=== PATIENT | female | born 1980 | race African-American/Black ===

== ENCOUNTER 2016-02-15 11:49 | Emergency (ER) | payer MEDICARE, MEDICAID, OTHER ==
[~2016-02-15] VITALS: Ht 167.6 cm; Wt 81.8 kg
[~2016-02-15 11:49] MED LIST changes: -AMITIZA24 MCG PO; -BENTYL 20MG20 MG/TAB PO; -CEPHALEXIN250 M1 PO; -CORLANOR5 MG PO; -CYMBALTA 20MG20 MG PO; -EC-NAPROSYN375 MG PO; -ELAVIL100 MG PO; -FIORICET 325 MG1 TA1 PO; -INVOKAMET1 PO; -KLONOPIN2 MG PO; -LAMICTAL 100MG100 MG PO; -LINZESS290CAP PO; -LIPITOR 40MG TA40 MG PO; -MAG-G500 MG PO; -MAGCITRATE PO; -MITIGARE0.6 MG PO; -PHENERGAN 25 TA25 MG; -SEROQUEL XR300 MG PO; -TREXIMET 500 MG1 TAB PO; -TRICOR 48MG48 MG PO; -ZITHROMAX 250M250 MG PO; -[UNRECOGNIZED DRUG - OTHER] SQ
[2016-02-15 11:51] VITALS: TEMP 98.2
[2016-02-15] MEDS ORDERED: MAGCITRATE PO (13:44)
[2016-02-15 14:12] VITALS: BP 122/67; PULSE 108
== END 2016-02-15 14:12 | disposition home or self-care (01) ==
LOC: COL.ER 11:49
DX: R10.32 Left lower quadrant pain (principal); K59.00 Constipation, unspecified
CPT/HCPCS: Q9967

== ENCOUNTER → 2016-02-15 | Outpatient (CLI) | payer MEDICARE, MEDICAID ==
[~2016-02-15] MED LIST: ALBUTEROL IH; AMANTADINE HCL100 M1 PO; AMBIEN 10MG10 MG PO; AMBIEN CR 12.12.5 MG PO; AMBIEN CR12.5 MG PO; AMITIZA24 MCG PO; AMITRIPTYLINE H25 M1 PO; AXERT PO; B2-5050 MG PO; BACLOFEN PO; BENTYL 20MG20 MG/TAB PO; BUSPAR10 MG PO; BUSPAR5 MG PO; BYETTA 5MC300 MCG/SY SC; CARDIZEM CD 18180 MG PO; CATAPRES 0.1MG0.1 MG PO; CEPHALEXIN250 M1 PO; CORLANOR5 MG PO; CRANBERRY PILLS PO; CYMBALTA 20MG20 MG PO; DULCOLAX TAB5 MG PO; EC-NAPROSYN375 MG PO; ELAVIL100 MG PO; ELAVIL50 MG PO; FIORICET 325 MG1 TA1 PO; GLIPIZIDE5 MG PO; IMITREX ST6 MG/0.5 M SC; INDERAL 20MG20 MG PO; INVOKAMET1 PO; KLONOPIN 0.5MG0.5 MG PO; KLONOPIN2 MG PO; LAMICTAL 100MG100 MG PO; LATUDA20 MG PO; LEVAQUIN 5500 MG/TAB PO; LEVBID0.375 MG PO; LEVOTHYROXINE PO; LEVSIN0.125 M1 PO; LINZESS290CAP PO; LIPITOR 40MG TA40 MG PO; LORTAB PO; LUNESTA1 MG PO; LUNESTA3 MG PO; MAG-G500 MG PO; MAGCITRATE PO; METFORMIN HCL500 M1 PO; METROGEL-VAGINA0.75% VG; MITIGARE0.6 MG PO; MORPHINE 1515 MG/TAB PO; NORCO 325 MG-51 TAB PO; OMNICEF 300MG300 MG PO; OXYCONTIN 20MG20 MG PO; PERCOCET 325 MG1 TA2 PO; PERCOCET 5/321 UDTAB PO; PHENERGAN 25 TA25 MG; PHENERGAN 25 TA25 MG PO; PRILOSEC10 MG PO; PRINIVIL2.5 MG PO; PROVENTIL0.09 MG/A1 IH; PYRIDIUM200 M1 PO; REGLAN 10MG10 MG/TAB PO; REQUIP 1MG T1 MG/TAB PO; RESTORIL 1515 MG/CAP PO; ROBAXIN 50500 MG/TAB PO; SEROQUEL 2525 MG/TAB PO; SEROQUEL PO; SEROQUEL XR300 MG PO; SINGULAIR10 MG PO; SYMAX DUOTAB0.375 MG PO; SYNTHROID0.05 MG/TA PO; SYNTHROID0.1 MG/TAB PO; SYNTHROID0.2 MG/TAB PO; TOPAMAX50 MG PO; TOPROL XL 50MG50 MG PO; TOPROL XL100 MG PO; TOPROL XL50 MG PO; TRAMADOL50 MG PO; TREXIMET 500 MG1 TAB PO; TRICOR 48MG48 MG PO; TRICOR145 MG PO; ULTRAM 50MG TAB50 MG PO; VALIUM 10MG10 MG/TAB PO; VALIUM 5MG T5 MG/TAB PO; WELLBUTRIN SR150 M1 PO; XANAX 0.5MG0.5 MG PO; ZANAFLEX CAPSULE2 MG PO; ZECUITY; ZITHROMAX 250M250 MG PO; ZOFRAN 4MG T4 MG/TAB PO; ZOFRAN ODT4 MG PO; ZOLOFT 100MG100 MG PO; ZOLOFT100 MG PO; ZOLOFT50 MG PO; [UNRECOGNIZED DRUG - OTHER] SQ; see list
== END ==
LOC: COL.RAD 02-13 10:00
PROVIDERS: Physician Assistant
DX: R10.84 Generalized abdominal pain (principal); R16.0 Hepatomegaly, not elsewhere classified; R14.0 Abdominal distension (gaseous); R11.0 Nausea; E11.9 Type 2 diabetes mellitus without complications
CPT/HCPCS: Q9967

== ENCOUNTER 2016-02-22 15:18 | Emergency (ER) | payer MEDICARE, MEDICAID, OTHER ==
[~2016-02-22] VITALS: Ht 167.6 cm; Wt 85.9 kg
[~2016-02-22 15:18] MED LIST changes: +MAGCITRATE PO
[2016-02-22 15:21] VITALS: TEMP 99.6
[2016-02-22 17:35] LABS: BASO % 0.4 % (0.0-2.0); EOS # 0.3 (0.0-0.7); EOS % 3.3 % (0-4.0); GRAN # 6.6 (1.4-6.5); GRAN % 63.1 % (42.2-75.2); HEMATOCRIT 43.8 % (37.0-47.0); HEMOGLOBIN 14.7 g/dl (12.5-16.0); LYMPH # 2.8 (1.2-3.4); LYMPH % 27.1 % (20.0-51.0); MEAN CELL VOLUME 97 fl (80.0-100.0); MEAN CORPUSCULAR HEMOGLOBIN 33 pg (27.0-31.0); MEAN CORPUSCULAR HGB CONC 34 g/dl (33.0-37.0); MEAN PLATELET VOLUME 8.9 fl (7.4-10.4); MONO # 0.6 (0.1-0.6); MONO % 5.9 % (1.7-9.3); PLATELET COUNT 226 K/mm3 (130-400); REDCELL DISTRIBUTION WIDTH-CV 13.4 % (11.5-14.5); WHITE BLOOD COUNT 10.4 K/mm3 (4.8-10.8)
[2016-02-22 17:45] LABS: ALANINE AMINOTRANSFERASE 38 U/L (9-52); ALBUMIN 3.8 gm/dL (3.5-5.0); ALKALINE PHOSPHATASE 71 U/L (50-136); ANION GAP 12 mmol/L (7-16); BILIRUBIN,TOTAL 0.6 mg/dL (0.0-1.0); BLOOD UREA NITROGEN 9 mg/dL (7-17); CALCIUM 8.8 mg/dL (8.4-10.2); CARBON DIOXIDE 23 mmol/L (22-30); CHLORIDE 104 mmol/L (98-107); CREATININE, serum 0.86 mg/dL (0.52-1.25); GLUCOSE 146 mg/dL (74-106); PHOSPHOROUS 2.9 mg/dL (2.5-4.5); POTASSIUM 3.9 mmol/L (3.4-5.0); SODIUM 140 mmol/L (137-145); TOTAL PROTEIN 7.2 gm/dL (6.4-8.2)
[2016-02-22 17:57] LABS: TROPONIN-I < 0.012 ng/mL (0.000-0.034)
[2016-02-22 18:27] VITALS: BP 118/70; PULSE 88
== END 2016-02-22 18:30 | disposition home or self-care (01) ==
LOC: COL.ER 15:18
PROVIDERS: Physician Assistant
DX: R55 Syncope and collapse (principal); R53.1 Weakness; K52.1 Toxic gastroenteritis and colitis; T47.4X5A Adverse effect of other laxatives, initial encounter; E03.9 Hypothyroidism, unspecified; I95.1 Orthostatic hypotension
CPT/HCPCS: J7030

== ENCOUNTER 2016-02-26 10:19 | Observation (INO) | payer MEDICARE, OTHER, MEDICAID ==
[~2016-02-26] VITALS: Ht 167.6 cm; Wt 93.8 kg
[2016-02-26] MEDS ORDERED: BENTYL 20MG20 MG/TAB PO (13:19)
[2016-02-26] MEDS ORDERED: CYMBALTA 20MG20 MG PO (13:19)
[2016-02-26] MEDS ORDERED: CEPHALEXIN250 M1 PO (13:21)
[2016-02-26] MEDS ORDERED: LINZESS290CAP PO (13:21)
[2016-02-26] MEDS ORDERED: TOPAMAX50 MG PO (13:22)
[2016-02-26] MEDS ORDERED: TREXIMET 500 MG1 TAB PO (13:22)
[2016-02-26] MEDS ORDERED: ELAVIL100 MG PO (13:23)
[2016-02-26] MEDS ORDERED: MAG-G500 MG PO (13:24)
[2016-02-26] MEDS ORDERED: INVOKAMET1 PO (13:25)
[2016-02-26] MEDS ORDERED: NORCO 325 MG-51 TAB PO (13:25)
[2016-02-26 14:09] VITALS: BP 137/86; PULSE 94; TEMP 98
[2016-02-26 16:15] VITALS: BP 134/91; PULSE 87; TEMP 98.4
[2016-02-26 19:44] VITALS: BP 122/87; PULSE 88; TEMP 98.3
[2016-02-26 23:56] VITALS: BP 130/77; PULSE 80
[2016-02-27 03:34] VITALS: BP 102/67; PULSE 95; TEMP 98.3
[2016-02-27 07:52] VITALS: BP 105/64; PULSE 100; TEMP 98.3
[2016-02-27 12:31] VITALS: BP 137/95; PULSE 102
[2016-02-27 15:38] VITALS: BP 119/80; PULSE 109
[2016-02-27 19:49] VITALS: BP 118/83; PULSE 117; TEMP 97.8
[2016-02-27 23:42] VITALS: BP 122/86; PULSE 104; TEMP 98.3
[2016-02-28 03:34] VITALS: BP 107/79; PULSE 107; TEMP 98.1
[2016-02-28 07:40] VITALS: BP 103/67; PULSE 108; TEMP 98.4
[2016-02-28 12:42] VITALS: BP 104/60; PULSE 109; TEMP 97.5
[2016-02-28 15:55] VITALS: BP 99/76; PULSE 100; TEMP 98.6
[2016-02-28] MEDS ORDERED: LAMICTAL 100MG100 MG PO (17:06)
== END 2016-02-28 17:51 | disposition home or self-care (01) ==
LOC: MEDICAL 10:19
DX: R55 Syncope and collapse (principal); E03.9 Hypothyroidism, unspecified; I10 Essential (primary) hypertension; E11.9 Type 2 diabetes mellitus without complications; G47.33 Obstructive sleep apnea (adult) (pediatric); F31.9 Bipolar disorder, unspecified; F41.0 Panic disorder [episodic paroxysmal anxiety]; F41.9 Anxiety disorder, unspecified; F90.9 Attention-deficit hyperactivity disorder, unspecified type; F42.9 Obsessive-compulsive disorder, unspecified
CPT/HCPCS: 90791-AI; A9585; G0378; J3030

== ENCOUNTER 2016-03-26 04:01 | Emergency (ER) | payer MEDICARE, MEDICAID, OTHER ==
[~2016-03-26] VITALS: Ht 167.6 cm; Wt 88.2 kg
[~2016-03-26 04:01] MED LIST changes: +BENTYL 20MG20 MG/TAB PO; +CEPHALEXIN250 M1 PO; +CYMBALTA 20MG20 MG PO; +ELAVIL100 MG PO; +INVOKAMET1 PO; +LAMICTAL 100MG100 MG PO; +LINZESS290CAP PO; +MAG-G500 MG PO; +TREXIMET 500 MG1 TAB PO
[2016-03-26] MEDS ORDERED: EC-NAPROSYN375 MG PO (05:33)
[2016-03-26] MEDS ORDERED: ZITHROMAX 250M250 MG PO (05:33)
[2016-03-26 05:44] VITALS: BP 147/98; PULSE 91
== END 2016-03-26 05:45 | disposition home or self-care (01) ==
LOC: COL.ER 04:01
DX: M94.0 Chondrocostal junction syndrome [Tietze] (principal)
CPT/HCPCS: J1170; J1885

== ENCOUNTER 2016-03-29 20:41 | Emergency (ER) | payer MEDICARE, MEDICAID, OTHER ==
[~2016-03-29] VITALS: Ht 170.2 cm; Wt 88.2 kg
[~2016-03-29 20:41] MED LIST changes: +EC-NAPROSYN375 MG PO; +ZITHROMAX 250M250 MG PO
[2016-03-29 20:43] VITALS: TEMP 99.1
[2016-03-29] MEDS ORDERED: ULTRAM 50MG TAB50 MG PO (21:25)
[2016-03-29] MEDS ORDERED: PERCOCET 325 MG1 TA2 PO (21:25)
[2016-03-29 21:58] VITALS: BP 147/97; PULSE 88
== END 2016-03-29 22:00 | disposition home or self-care (01) ==
LOC: COL.ER 20:41
DX: J40 Bronchitis, not specified as acute or chronic (principal); J06.9 Acute upper respiratory infection, unspecified
CPT/HCPCS: J1170; J1885

== ENCOUNTER 2016-04-02 07:22 | Emergency (ER) | payer MEDICARE, MEDICAID, OTHER ==
[~2016-04-02] VITALS: Ht 167.6 cm; Wt 85.9 kg
[2016-04-02 07:26] VITALS: TEMP 98.2
[2016-04-02 08:16] LABS: BASO % 0.5 % (0.0-2.0); EOS # 0.1 (0.0-0.7); EOS % 0.7 % (0-4.0); GRAN # 5.8 (1.4-6.5); GRAN % 71.8 % (42.2-75.2); HEMATOCRIT 47.1 % (37.0-47.0); HEMOGLOBIN 16.2 g/dl (12.5-16.0); LYMPH # 1.7 (1.2-3.4); LYMPH % 20.5 % (20.0-51.0); MEAN CELL VOLUME 94 fl (80.0-100.0); MEAN CORPUSCULAR HEMOGLOBIN 32 pg (27.0-31.0); MEAN CORPUSCULAR HGB CONC 34 g/dl (33.0-37.0); MEAN PLATELET VOLUME 9.3 fl (7.4-10.4); MONO # 0.5 (0.1-0.6); MONO % 6.1 % (1.7-9.3); PLATELET COUNT 243 K/mm3 (130-400); RED BLOOD COUNT 5.02 M/mm3 (4.10-5.30); REDCELL DISTRIBUTION WIDTH-CV 12.6 % (11.5-14.5); WHITE BLOOD COUNT 8.1 K/mm3 (4.8-10.8)
[2016-04-02 08:56] LABS: ALANINE AMINOTRANSFERASE 31 U/L (9-52); ALBUMIN 4.2 gm/dL (3.5-5.0); ALKALINE PHOSPHATASE 71 U/L (50-136); ANION GAP 15 mmol/L (7-16); BILIRUBIN,TOTAL 1.1 mg/dL (0.0-1.0); BLOOD UREA NITROGEN 10 mg/dL (7-17); CALCIUM 9.2 mg/dL (8.4-10.2); CARBON DIOXIDE 21 mmol/L (22-30); CHLORIDE 103 mmol/L (98-107); CREATININE, serum 0.72 mg/dL (0.52-1.25); GLUCOSE 258 mg/dL (74-106); POTASSIUM 3.9 mmol/L (3.4-5.0); SODIUM 139 mmol/L (137-145); TOTAL PROTEIN 7.8 gm/dL (6.4-8.2)
[2016-04-02 09:02] LABS: C-REACTIVE PROTEIN < 0.5 mg/dL (0.0-0.9)
[2016-04-02 09:04] LABS: PH 8 (5-8); SQUAMOUS EPITHELIAL 0-2 /hpf; URINE APPEARANCE Hazy; URINE BACTERIA Rare /hpf; URINE BILIRUBIN Negative (NEGATIVE); URINE BLOOD 2+ (NEGATIVE); URINE COLOR Yellow; URINE GLUCOSE 3+ (NEGATIVE); URINE KETONE Negative (NEGATIVE); URINE RBC 0-2 /hpf; URINE UROBILINOGEN Negative (NEGATIVE)
[2016-04-02] MEDS ORDERED: PHENERGAN 25 TA25 MG PO (09:49)
[2016-04-02 10:03] VITALS: BP 112/87; PULSE 88
== END 2016-04-02 10:03 | disposition home or self-care (01) ==
LOC: COL.ER 07:22
PROVIDERS: Emergency Medicine
DX: R10.32 Left lower quadrant pain (principal)
CPT/HCPCS: J1200; J1630; J3010; J7030

== ENCOUNTER 2016-07-06 16:36 | Inpatient (IN) | payer MEDICARE, MEDICAID ==
[~2016-07-06] VITALS: Ht 170.2 cm; Wt 86.2 kg
[2016-07-06 17:17] LABS: BASO # 0.1 (0.0-0.2); BASO % 0.9 % (0.0-2.0); EOS # 0.1 (0.0-0.7); EOS % 1.8 % (0-4.0); GRAN # 3.9 (1.4-6.5); GRAN % 59.7 % (42.2-75.2); HEMATOCRIT 43.5 % (37.0-47.0); HEMOGLOBIN 14.9 g/dl (12.5-16.0); LYMPH % 31.3 % (20.0-51.0); MEAN CELL VOLUME 98 fl (80.0-100.0); MEAN CORPUSCULAR HEMOGLOBIN 34 pg (27.0-31.0); MEAN CORPUSCULAR HGB CONC 34 g/dl (33.0-37.0); MEAN PLATELET VOLUME 10.2 fl (7.4-10.4); MONO # 0.4 (0.1-0.6); MONO % 5.5 % (1.7-9.3); PLATELET COUNT 289 K/mm3 (130-400); RED BLOOD COUNT 4.45 M/mm3 (4.10-5.30); REDCELL DISTRIBUTION WIDTH-CV 13.5 % (11.5-14.5); WHITE BLOOD COUNT 6.5 K/mm3 (4.8-10.8)
[2016-07-06 17:30] LABS: ADJUSTED CALCIUM 8.7 mg/dL (8.4-10.2); ALANINE AMINOTRANSFERASE 25 U/L (9-52); ALBUMIN 4.1 gm/dL (3.5-5.0); ALKALINE PHOSPHATASE 84 U/L (50-136); ANION GAP 17 mmol/L (7-16); BILIRUBIN,TOTAL 1.1 mg/dL (0.0-1.0); BLOOD UREA NITROGEN 7 mg/dL (7-17); CALCIUM 8.8 mg/dL (8.4-10.2); CARBON DIOXIDE 19 mmol/L (22-30); CHLORIDE 96 mmol/L (98-107); CREATININE, serum 0.65 mg/dL (0.52-1.25); POTASSIUM 3.9 mmol/L (3.4-5.0); SODIUM 133 mmol/L (137-145); TOTAL PROTEIN 7.2 gm/dL (6.4-8.2)
[2016-07-06 17:34] LABS: GLUCOSE 575 mg/dL (74-106)
[2016-07-06 17:40] LABS: PARTIAL THROMBOPLASTIN TIME 28.4 SECONDS (26.0-37.0); PROTHROMBIN TIME 10.9 SECONDS (9.7-12.8)
[2016-07-06 17:42] LABS: TROPONIN-I < 0.012 ng/mL (0.000-0.034)
[2016-07-06 18:52] LABS: PH 6 (5-8); SQUAMOUS EPITHELIAL 0-2 /hpf; URINE APPEARANCE Clear; URINE BACTERIA None Seen /hpf; URINE BILIRUBIN Negative (NEGATIVE); URINE BLOOD Negative (NEGATIVE); URINE COLOR Straw; URINE GLUCOSE 3+ (NEGATIVE); URINE KETONE Negative (NEGATIVE); URINE RBC 0-2 /hpf; URINE UROBILINOGEN Negative (NEGATIVE); URINE WBC 0-2 /hpf
[2016-07-06] MEDS ORDERED: FIORICET 325 MG1 TA1 PO (19:37)
[2016-07-06] MEDS ORDERED: KLONOPIN2 MG PO (19:37)
[2016-07-06] MEDS ORDERED: AMITIZA24 MCG PO (19:38)
[2016-07-06] MEDS ORDERED: SEROQUEL XR300 MG PO (19:38)
[2016-07-06 19:51] LABS: TROPONIN-I < 0.012 ng/mL (0.000-0.034)
[2016-07-06 22:37] VITALS: BP 113/76; PULSE 87; TEMP 98.3
[2016-07-06 23:02] LABS: MAGNESIUM 1.8 mg/dL (1.6-2.3)
[2016-07-06 23:12] LABS: B-TYPE NATRIURETIC PEPTIDE < 11 pg/mL (0-125)
[2016-07-07] VITALS (8 sets, daily range): BP systolic 97–116; BP diastolic 46–78; PULSE 79–107; TEMP 97.4–98.5
[2016-07-07 07:22] LABS: CHOLESTEROL 256 mg/dL (120-200)
[2016-07-07 08:14] LABS: TRIGLYCERIDE 958 mg/dL
[2016-07-08 03:54] VITALS: BP 111/77; PULSE 74; TEMP 97.7
[2016-07-08 07:36] VITALS: BP 119/77; PULSE 86; TEMP 98.3
[2016-07-08] MEDS ORDERED: CORLANOR5 MG PO (10:26)
[2016-07-08 12:23] VITALS: BP 107/71; PULSE 83; TEMP 98.8
[2016-07-08] MEDS ORDERED: LIPITOR 40MG TA40 MG PO (14:20)
[2016-07-08] MEDS ORDERED: TRICOR 48MG48 MG PO (15:02)
[2016-07-08 15:15] VITALS: BP 114/77; PULSE 70; TEMP 98.2
== END 2016-07-08 16:47 | disposition home or self-care (01) | DRG 310 ==
LOC: COL.ER 16:36 → MEDICAL 22:00
PROVIDERS: Emergency Medicine; Nurse Practitioner Family
DX: I47.1 Supraventricular tachycardia (principal); K58.9 Irritable bowel syndrome, unspecified; E11.65 Type 2 diabetes mellitus with hyperglycemia; N93.9 Abnormal uterine and vaginal bleeding, unspecified; F41.9 Anxiety disorder, unspecified
CPT/HCPCS: 99223-AI; 99233-AI; 99239; J1170; J1815; J2060; J2270; J2405; J2765; J3010; J7030; Q9967

== ENCOUNTER 2016-07-11 16:56 | Emergency (ER) | payer MEDICARE, MEDICAID ==
[~2016-07-11] VITALS: Ht 170.2 cm; Wt 76.8 kg
[~2016-07-11 16:56] MED LIST changes: +AMITIZA24 MCG PO; +CORLANOR5 MG PO; +FIORICET 325 MG1 TA1 PO; +KLONOPIN2 MG PO; +LIPITOR 40MG TA40 MG PO; +SEROQUEL XR300 MG PO; +TRICOR 48MG48 MG PO
[2016-07-11 16:58] VITALS: TEMP 98.2
[2016-07-11 17:45] LABS: BASO % 0.5 % (0.0-2.0); EOS # 0.1 (0.0-0.7); EOS % 1.7 % (0-4.0); GRAN # 4.9 (1.4-6.5); GRAN % 65.6 % (42.2-75.2); HEMATOCRIT 42.8 % (37.0-47.0); HEMOGLOBIN 14.4 g/dl (12.5-16.0); LYMPH % 26.4 % (20.0-51.0); MEAN CELL VOLUME 100 fl (80.0-100.0); MEAN CORPUSCULAR HEMOGLOBIN 34 pg (27.0-31.0); MEAN CORPUSCULAR HGB CONC 34 g/dl (33.0-37.0); MEAN PLATELET VOLUME 9.6 fl (7.4-10.4); MONO # 0.4 (0.1-0.6); MONO % 5.5 % (1.7-9.3); PLATELET COUNT 257 K/mm3 (130-400); RED BLOOD COUNT 4.27 M/mm3 (4.10-5.30); REDCELL DISTRIBUTION WIDTH-CV 13.4 % (11.5-14.5); WHITE BLOOD COUNT 7.5 K/mm3 (4.8-10.8)
[2016-07-11 17:55] LABS: ADJUSTED CALCIUM 8.8 mg/dL (8.4-10.2); ALANINE AMINOTRANSFERASE 24 U/L (9-52); ALBUMIN 3.8 gm/dL (3.5-5.0); ALKALINE PHOSPHATASE 68 U/L (50-136); ANION GAP 12 mmol/L (7-16); BILIRUBIN,TOTAL 0.9 mg/dL (0.0-1.0); BLOOD UREA NITROGEN 13 mg/dL (7-17); CALCIUM 8.6 mg/dL (8.4-10.2); CARBON DIOXIDE 24 mmol/L (22-30); CHLORIDE 101 mmol/L (98-107); CREATININE, serum 0.71 mg/dL (0.52-1.25); GLUCOSE 287 mg/dL (74-106); POTASSIUM 3.7 mmol/L (3.4-5.0); SODIUM 137 mmol/L (137-145); TOTAL PROTEIN 6.8 gm/dL (6.4-8.2)
[2016-07-11 18:15] LABS: TROPONIN-I < 0.012 ng/mL (0.000-0.034)
[2016-07-11] MEDS ORDERED: MITIGARE0.6 MG PO (18:34)
[2016-07-11 19:20] VITALS: BP 105/69; PULSE 77
== END 2016-07-11 19:24 | disposition home or self-care (01) ==
LOC: COL.ER 16:56
PROVIDERS: Emergency Medicine
DX: I30.9 Acute pericarditis, unspecified (principal); E10.8 Type 1 diabetes mellitus with unspecified complications; F41.9 Anxiety disorder, unspecified; Z79.4 Long term (current) use of insulin
CPT/HCPCS: J1170; J1885; J2405

== ENCOUNTER 2016-07-18 09:22 | Day surgery (SDC) | payer MEDICARE, MEDICAID ==
[~2016-07-18] VITALS: Ht 170.2 cm; Wt 78.1 kg
[~2016-07-18 09:22] MED LIST changes: +MITIGARE0.6 MG PO
[2016-07-18 10:10] VITALS: BP 125/88; PULSE 81; TEMP 97.5
[2016-07-18] MEDS ORDERED: [UNRECOGNIZED DRUG - OTHER] SQ (10:28)
[2016-07-18] MEDS ORDERED: PHENERGAN 25 TA25 MG (10:42)
[2016-07-18] MEDS ORDERED: ULTRAM 50MG TAB50 MG PO (10:44)
[2016-07-18 11:15] VITALS: BP 125/88; PULSE 83; TEMP 98.8
[2016-07-18 11:45] VITALS: BP 118/83; PULSE 89
== END 2016-07-18 11:45 | disposition home or self-care (01) ==
LOC: SDCO 09:22
DX: K21.9 Gastro-esophageal reflux disease without esophagitis (principal); K22.70 Barrett's esophagus without dysplasia; K44.9 Diaphragmatic hernia without obstruction or gangrene; E66.9 Obesity, unspecified; E11.9 Type 2 diabetes mellitus without complications
CPT/HCPCS: J2250; J3010

== ENCOUNTER 2016-10-04 17:28 | Emergency (ER) | payer MEDICARE, MEDICAID ==
[~2016-10-04] VITALS: Ht 165.1 cm; Wt 80.0 kg
[~2016-10-04 17:28] MED LIST changes: +PHENERGAN 25 TA25 MG; +[UNRECOGNIZED DRUG - OTHER] SQ
[2016-10-04 17:35] VITALS: TEMP 98.3
[2016-10-04 18:29] LABS: BASO % 0.4 % (0.0-2.0); EOS # 0.3 (0.0-0.7); GRAN # 6.7 (1.4-6.5); HEMOGLOBIN 13.5 g/dl (12.5-16.0); LYMPH # 2.4 (1.2-3.4); LYMPH % 23.9 % (20.0-51.0); MEAN CELL VOLUME 98 fl (80.0-100.0); MEAN CORPUSCULAR HEMOGLOBIN 32 pg (27.0-31.0); MEAN CORPUSCULAR HGB CONC 33 g/dl (33.0-37.0); MONO # 0.5 (0.1-0.6); MONO % 5.3 % (1.7-9.3); PLATELET COUNT 240 K/mm3 (130-400); RED BLOOD COUNT 4.19 M/mm3 (4.10-5.30)
[2016-10-04 18:30] LABS: INR 1.2 (0.8-3.0)
[2016-10-04 18:33] LABS: PARTIAL THROMBOPLASTIN TIME 34.2 SECONDS (26.0-37.0)
[2016-10-04 18:41] LABS: ADJUSTED CALCIUM 8.7 mg/dL (8.4-10.2); ALANINE AMINOTRANSFERASE 21 U/L (9-52); ALKALINE PHOSPHATASE 42 U/L (50-136); ANION GAP 11 mmol/L (7-16); BILIRUBIN,TOTAL 0.5 mg/dL (0.0-1.0); BLOOD UREA NITROGEN 12 mg/dL (7-17); CALCIUM 8.7 mg/dL (8.4-10.2); CARBON DIOXIDE 20 mmol/L (22-30); CHLORIDE 110 mmol/L (98-107); CREATININE, serum 0.92 mg/dL (0.52-1.25); GLUCOSE 174 mg/dL (74-106); LIPASE 26 U/L (23-300); POTASSIUM 3.6 mmol/L (3.4-5.0); SODIUM 140 mmol/L (137-145); TOTAL PROTEIN 7.1 gm/dL (6.4-8.2)
[2016-10-04 18:53] LABS: B-TYPE NATRIURETIC PEPTIDE 12 pg/mL (0-125)
[2016-10-04 19:06] LABS: TROPONIN-I < 0.012 ng/mL (0.000-0.034)
[2016-10-04] MEDS ORDERED: ZITHROMAX 250M250 MG PO (20:54)
[2016-10-04] MEDS ORDERED: NORCO 325 MG-51 TAB PO (21:39)
[2016-10-04 21:54] VITALS: BP 100/66; PULSE 91
== END 2016-10-04 21:54 | disposition home or self-care (01) ==
LOC: COL.ER 17:28
PROVIDERS: Emergency Medicine
DX: R09.1 Pleurisy (principal); I26.99 Other pulmonary embolism without acute cor pulmonale; E11.9 Type 2 diabetes mellitus without complications; I10 Essential (primary) hypertension; E78.5 Hyperlipidemia, unspecified; K58.9 Irritable bowel syndrome, unspecified
CPT/HCPCS: J1170; J7030; Q9967

== ENCOUNTER → 2016-10-09 | Outpatient (CLI) | payer MEDICARE, MEDICAID ==
[2016-10-10 00:04] LABS: HOMOCYSTEINE 10.5 umol/L (4.0-14.0)
[2016-10-10 11:16] LABS: PT G20210A MUTATION B Negative (Negative)
[2016-10-14 12:23] LABS: LUPUS ANTICOAGULANT PT 11.5 sec (()); LUPUS ANTICOAGULANT PTT 31 sec (26 - 36)
[2016-10-14 13:09] LABS: LUPUS ANTICOAGULANT DRVVT 0.9 ratio (())
== END ==
LOC: COL.RAD 10-08 12:00 → COL.LAB 11:35 → COL.RAD 12:00
PROVIDERS: Internal Medicine Pulmonary Disease
DX: R06.02 Shortness of breath (principal); I26.99 Other pulmonary embolism without acute cor pulmonale

== ENCOUNTER → 2016-10-21 | Outpatient (CLI) | payer MEDICARE, MEDICAID | LOC: COL.VAS 10-14 10:30 | DX: I26.99 Other pulmonary embolism without acute cor pulmonale (principal) | CPT/HCPCS: A9539; A9540 ==

== ENCOUNTER 2016-10-26 11:15 | Emergency (ER) | payer MEDICARE, MEDICAID ==
[~2016-10-26] VITALS: Ht 167.6 cm; Wt 81.4 kg
[2016-10-26 11:17] VITALS: TEMP 98
[2016-10-26 12:23] LABS: BASO # 0.1 (0.0-0.2); BASO % 0.7 % (0.0-2.0); EOS # 0.1 (0.0-0.7); EOS % 1.4 % (0-4.0); GRAN # 4.8 (1.4-6.5); GRAN % 64.8 % (42.2-75.2); HEMATOCRIT 42.4 % (37.0-47.0); HEMOGLOBIN 14.1 g/dl (12.5-16.0); LYMPH % 27.2 % (20.0-51.0); MEAN CELL VOLUME 96 fl (80.0-100.0); MEAN CORPUSCULAR HEMOGLOBIN 32 pg (27.0-31.0); MEAN CORPUSCULAR HGB CONC 33 g/dl (33.0-37.0); MONO # 0.4 (0.1-0.6); MONO % 5.6 % (1.7-9.3); PLATELET COUNT 278 K/mm3 (130-400); REDCELL DISTRIBUTION WIDTH-CV 12.4 % (11.5-14.5); WHITE BLOOD COUNT 7.3 K/mm3 (4.8-10.8)
[2016-10-26 12:27] LABS: INR 1.2 (0.8-3.0); PROTHROMBIN TIME 13.8 SECONDS (9.7-12.8)
[2016-10-26 12:38] LABS: ADJUSTED CALCIUM 8.9 mg/dL (8.4-10.2); ALANINE AMINOTRANSFERASE 14 U/L (9-52); ALBUMIN 4.1 gm/dL (3.5-5.0); ALKALINE PHOSPHATASE 56 U/L (50-136); ANION GAP 11 mmol/L (7-16); BILIRUBIN,TOTAL 0.6 mg/dL (0.0-1.0); BLOOD UREA NITROGEN 13 mg/dL (7-17); CARBON DIOXIDE 20 mmol/L (22-30); CHLORIDE 109 mmol/L (98-107); CREATININE, serum 0.93 mg/dL (0.52-1.25); GLUCOSE 142 mg/dL (74-106); LIPASE 38 U/L (23-300); POTASSIUM 3.8 mmol/L (3.4-5.0); SODIUM 140 mmol/L (137-145); TOTAL PROTEIN 7.3 gm/dL (6.4-8.2)
[2016-10-26 12:50] LABS: B-TYPE NATRIURETIC PEPTIDE < 11 pg/mL (0-125); TROPONIN-I < 0.012 ng/mL (0.000-0.034)
[2016-10-26 13:26] VITALS: BP 128/90; PULSE 82
== END 2016-10-26 13:27 | disposition home or self-care (01) ==
LOC: COL.ER 11:15
PROVIDERS: Emergency Medicine
DX: J90 Pleural effusion, not elsewhere classified (principal); R06.02 Shortness of breath; E11.9 Type 2 diabetes mellitus without complications; I10 Essential (primary) hypertension; E78.5 Hyperlipidemia, unspecified; G43.909 Migraine, unspecified, not intractable, without status migrainosus; I27.2 Other secondary pulmonary hypertension; G47.33 Obstructive sleep apnea (adult) (pediatric); Z32.02 Encounter for pregnancy test, result negative
CPT/HCPCS: J2550; J7040; Q9967

== ENCOUNTER → 2016-10-27 | Outpatient (CLI) | payer MEDICARE, MEDICAID | LOC: COL.RAD 09:31 | DX: Z86.711 Personal history of pulmonary embolism (principal) ==

== ENCOUNTER → 2016-11-04 | Outpatient (CLI) | payer MEDICARE, MEDICAID ==
[~2016-11-04] MED LIST changes: +EFFEXOR 75M75 MG/TAB PO; +FLEXERIL 1010 MG/TAB PO; +FLOMAX 0.40.4 MG/CAP PO; +LAMICTAL200 MG PO; +LOVENOX 8080 MG/0.8 SQ; +LYRICA200 MG PO; +NOVOLOG 100U100 U/M1 SQ; +PREDNISONE 5MG5 MG PO; +REXULTI2 MG PO; +SEROQUEL 1100 MG/TAB PO; +SEROQUEL400 MG PO; +SYNTHROID 0.10.15 MG PO; +TRESIBA FL100 UNIT/1 SQ
== END ==
LOC: COL.VAS 08:00
DX: R06.02 Shortness of breath (principal)

== ENCOUNTER 2016-11-10 07:57 | Outpatient (CLI) | payer MEDICARE, MEDICAID ==
[~2016-11-10] VITALS: Ht 167.6 cm; Wt 85.2 kg
[~2016-11-10 07:57] MED LIST changes: -EFFEXOR 75M75 MG/TAB PO; -FLEXERIL 1010 MG/TAB PO; -FLOMAX 0.40.4 MG/CAP PO; -LAMICTAL200 MG PO; -LOVENOX 8080 MG/0.8 SQ; -LYRICA200 MG PO; -NOVOLOG 100U100 U/M1 SQ; -PREDNISONE 5MG5 MG PO; -REXULTI2 MG PO; -SEROQUEL 1100 MG/TAB PO; -SEROQUEL400 MG PO; -SYNTHROID 0.10.15 MG PO; -TRESIBA FL100 UNIT/1 SQ
[2016-11-10] MEDS ORDERED: SYNTHROID 0.10.15 MG PO (08:39)
[2016-11-10] MEDS ORDERED: TRESIBA FL100 UNIT/1 SQ (08:41)
[2016-11-10] MEDS ORDERED: NOVOLOG 100U100 U/M1 SQ (08:43)
[2016-11-10] MEDS ORDERED: REXULTI2 MG PO (08:44)
[2016-11-10] MEDS ORDERED: PREDNISONE 5MG5 MG PO (08:46)
[2016-11-10] MEDS ORDERED: TRICOR 48MG48 MG PO (08:46)
[2016-11-10] MEDS ORDERED: FLOMAX 0.40.4 MG/CAP PO (08:47)
[2016-11-10] MEDS ORDERED: SEROQUEL400 MG PO (08:49)
[2016-11-10] MEDS ORDERED: LAMICTAL200 MG PO (08:51)
[2016-11-10] MEDS ORDERED: SEROQUEL 1100 MG/TAB PO (08:51)
[2016-11-10] MEDS ORDERED: FLEXERIL 1010 MG/TAB PO (08:55)
[2016-11-10] MEDS ORDERED: LYRICA200 MG PO (08:55)
[2016-11-10] MEDS ORDERED: LOVENOX 8080 MG/0.8 SQ (08:56)
[2016-11-10] MEDS ORDERED: EFFEXOR 75M75 MG/TAB PO (08:56)
[2016-11-10] MEDS ORDERED: LIPITOR 40MG TA40 MG PO (08:57)
[2016-11-10 08:58] VITALS: BP 130/92; PULSE 86; TEMP 98.4
[2016-11-10 11:45] VITALS: BP 132/94; PULSE 89
== END 2016-11-10 09:45 | disposition home or self-care (01) ==
LOC: SDCO 07:57
DX: J90 Pleural effusion, not elsewhere classified (principal); R07.9 Chest pain, unspecified; R06.02 Shortness of breath; G47.34 Idiopathic sleep related nonobstructive alveolar hypoventilation; Z79.01 Long term (current) use of anticoagulants; I10 Essential (primary) hypertension; M79.606 Pain in leg, unspecified; E11.9 Type 2 diabetes mellitus without complications; Z99.81 Dependence on supplemental oxygen; Z86.711 Personal history of pulmonary embolism; R09.02 Hypoxemia; Z68.29 Body mass index [BMI] 29.0-29.9, adult

== ENCOUNTER 2016-11-18 17:20 | Emergency (ER) | payer MEDICARE, MEDICAID ==
[~2016-11-18] VITALS: Ht 167.6 cm; Wt 85.0 kg
[~2016-11-18 17:20] MED LIST changes: +EFFEXOR 75M75 MG/TAB PO; +FLEXERIL 1010 MG/TAB PO; +FLOMAX 0.40.4 MG/CAP PO; +LAMICTAL200 MG PO; +LOVENOX 8080 MG/0.8 SQ; +LYRICA200 MG PO; +NOVOLOG 100U100 U/M1 SQ; +PREDNISONE 5MG5 MG PO; +REXULTI2 MG PO; +SEROQUEL 1100 MG/TAB PO; +SEROQUEL400 MG PO; +SYNTHROID 0.10.15 MG PO; +TRESIBA FL100 UNIT/1 SQ
[2016-11-18 18:29] LABS: BASO # 0.1 (0.0-0.2); BASO % 0.6 % (0.0-2.0); EOS # 0.1 (0.0-0.7); EOS % 0.8 % (0-4.0); GRAN # 7.1 (1.4-6.5); GRAN % 68.3 % (42.2-75.2); HEMATOCRIT 43.7 % (37.0-47.0); HEMOGLOBIN 14.8 g/dl (12.5-16.0); LYMPH # 2.5 (1.2-3.4); LYMPH % 24.1 % (20.0-51.0); MEAN CELL VOLUME 97 fl (80.0-100.0); MEAN CORPUSCULAR HEMOGLOBIN 33 pg (27.0-31.0); MEAN CORPUSCULAR HGB CONC 34 g/dl (33.0-37.0); MEAN PLATELET VOLUME 9.2 fl (7.4-10.4); MONO # 0.6 (0.1-0.6); MONO % 5.7 % (1.7-9.3); PLATELET COUNT 319 K/mm3 (130-400); RED BLOOD COUNT 4.49 M/mm3 (4.10-5.30); REDCELL DISTRIBUTION WIDTH-CV 12.7 % (11.5-14.5); WHITE BLOOD COUNT 10.4 K/mm3 (4.8-10.8)
[2016-11-18 18:43] LABS: INR 0.9 (0.8-3.0); PROTHROMBIN TIME 9.8 SECONDS (9.7-12.8)
[2016-11-18 18:46] LABS: PARTIAL THROMBOPLASTIN TIME 32.4 SECONDS (26.0-37.0)
[2016-11-18 18:55] LABS: ADJUSTED CALCIUM 8.9 mg/dL (8.4-10.2); ALANINE AMINOTRANSFERASE 28 U/L (9-52); ALBUMIN 4.2 gm/dL (3.5-5.0); ALKALINE PHOSPHATASE 62 U/L (50-136); ANION GAP 14 mmol/L (7-16); BILIRUBIN,TOTAL 0.5 mg/dL (0.0-1.0); BLOOD UREA NITROGEN 16 mg/dL (7-17); CALCIUM 9.1 mg/dL (8.4-10.2); CARBON DIOXIDE 18 mmol/L (22-30); CHLORIDE 109 mmol/L (98-107); GLUCOSE 114 mg/dL (74-106); POTASSIUM 3.8 mmol/L (3.4-5.0); SODIUM 140 mmol/L (137-145); TOTAL PROTEIN 7.7 gm/dL (6.4-8.2)
[2016-11-18 19:08] LABS: B-TYPE NATRIURETIC PEPTIDE < 11 pg/mL (0-125); TROPONIN-I < 0.012 ng/mL (0.000-0.034)
[2016-11-18] MEDS ORDERED: ZITHROMAX Z PA250 MG PO (20:50)
[2016-11-18 21:04] VITALS: BP 117/85; PULSE 92; TEMP 99
== END 2016-11-18 21:00 | disposition home or self-care (01) ==
LOC: COL.ER 17:20
PROVIDERS: Emergency Medicine
DX: J06.9 Acute upper respiratory infection, unspecified (principal); R06.02 Shortness of breath; I10 Essential (primary) hypertension; E11.9 Type 2 diabetes mellitus without complications; E78.5 Hyperlipidemia, unspecified; F31.9 Bipolar disorder, unspecified; K58.9 Irritable bowel syndrome, unspecified; G43.909 Migraine, unspecified, not intractable, without status migrainosus; Z86.711 Personal history of pulmonary embolism; Z79.4 Long term (current) use of insulin; Z79.01 Long term (current) use of anticoagulants
CPT/HCPCS: J7030; Q9967

== ENCOUNTER → 2016-11-27 | Outpatient (CLI) | payer MEDICARE, MEDICAID ==
[~2016-11-27] MED LIST changes: +ZITHROMAX Z PA250 MG PO
== END ==
LOC: COL.RAD 09:16
DX: N20.0 Calculus of kidney (principal); R14.0 Abdominal distension (gaseous)
CPT/HCPCS: Q9967

== ENCOUNTER 2016-11-28 07:18 | Outpatient (CLI) | payer MEDICARE, MEDICAID ==
[~2016-11-28] VITALS: Ht 167.6 cm; Wt 85.5 kg
[2016-11-28 08:17] VITALS: BP 119/83; PULSE 108; TEMP 999
[2016-11-28 08:41] LABS: HEMOGLOBIN 13.4 g/dl (12.5-16.0); MEAN CELL VOLUME 100 fl (80.0-100.0); MEAN CORPUSCULAR HEMOGLOBIN 33 pg (27.0-31.0); MEAN CORPUSCULAR HGB CONC 33 g/dl (33.0-37.0); MEAN PLATELET VOLUME 9.2 fl (7.4-10.4); PLATELET COUNT 257 K/mm3 (130-400); RED BLOOD COUNT 4.09 M/mm3 (4.10-5.30)
[2016-11-28 10:00] VITALS: BP 120/67; PULSE 87
== END 2016-11-28 10:10 | disposition home or self-care (01) ==
LOC: COL.CAR 07:18
PROVIDERS: Internal Medicine Interventional Cardiology
DX: R55 Syncope and collapse (principal); R00.2 Palpitations; Z86.711 Personal history of pulmonary embolism; I10 Essential (primary) hypertension; E11.9 Type 2 diabetes mellitus without complications; E03.9 Hypothyroidism, unspecified; I83.90 Asymptomatic varicose veins of unspecified lower extremity
CPT/HCPCS: C1764

== ENCOUNTER 2016-12-22 12:40 | Inpatient (IN) | payer MEDICARE, MEDICAID ==
[~2016-12-22] VITALS: Ht 170.2 cm; Wt 86.2 kg
[~2016-12-22 12:40] MED LIST changes: +DOXYCYCLINE 10100 MG PO; -EFFEXOR 75M75 MG/TAB PO; +EFFEXOR XR75 MG/CAP PO; +PAXIL 20MG20 MG PO; +TOPAMAX 100MG100 M1 PO
[2016-12-22 14:20] VITALS: BP 126/71; PULSE 97; TEMP 98.9
[2016-12-22 14:49] VITALS: BP 123/81; BP 126/71; PULSE 100; PULSE 106; TEMP 98.9
[2016-12-22 14:50] VITALS: BP 113/80; PULSE 114
[2016-12-22] MEDS ORDERED: TRESIBA FL100 UNIT/1 SQ (14:59)
[2016-12-22] MEDS ORDERED: TOPAMAX 100MG100 M1 PO (15:02)
[2016-12-22] MEDS ORDERED: KLONOPIN2 MG PO (15:02)
[2016-12-22] MEDS ORDERED: INVOKAMET1 PO (15:05)
[2016-12-22 15:45] VITALS: BP 118/73; PULSE 89; TEMP 97.9
[2016-12-22 20:14] VITALS: BP 111/84; PULSE 90; TEMP 98.7
[2016-12-22] MEDS ORDERED: ZANAFLEX2 MG PO (20:24)
[2016-12-23] VITALS (8 sets, daily range): BP systolic 100–129; BP diastolic 60–82; PULSE 87–101; TEMP 97.2–98.3
[2016-12-23 06:56] LABS: BASO % 0.6 % (0.0-2.0); EOS # 0.2 (0.0-0.7); EOS % 2.3 % (0-4.0); GRAN # 3.6 (1.4-6.5); GRAN % 53.9 % (42.2-75.2); HEMOGLOBIN 13.5 g/dl (12.5-16.0); LYMPH # 2.5 (1.2-3.4); MEAN CELL VOLUME 99 fl (80.0-100.0); MEAN CORPUSCULAR HEMOGLOBIN 32 pg (27.0-31.0); MEAN CORPUSCULAR HGB CONC 32 g/dl (33.0-37.0); MEAN PLATELET VOLUME 9.3 fl (7.4-10.4); MONO # 0.4 (0.1-0.6); MONO % 5.7 % (1.7-9.3); PLATELET COUNT 244 K/mm3 (130-400); RED BLOOD COUNT 4.25 M/mm3 (4.10-5.30); WHITE BLOOD COUNT 6.6 K/mm3 (4.8-10.8)
[2016-12-23 06:59] LABS: ADJUSTED CALCIUM 8.7 mg/dL (8.4-10.2); ALBUMIN 3.7 gm/dL (3.5-5.0); BILIRUBIN,TOTAL 0.5 mg/dL (0.0-1.0); CALCIUM 8.5 mg/dL (8.4-10.2); CREATININE, serum 0.95 mg/dL (0.52-1.25); POTASSIUM 3.9 mmol/L (3.4-5.0); TOTAL PROTEIN 6.3 gm/dL (6.4-8.2)
[2016-12-24] VITALS (7 sets, daily range): BP systolic 97–126; BP diastolic 71–80; PULSE 82–100; TEMP 98–99.1
[2016-12-24] MEDS ORDERED: FLORINEF ACETA0.1 MG PO (19:35)
[2016-12-24] MEDS ORDERED: DEPAKOTE ER 50500 MG PO (19:37)
[2016-12-24] MEDS ORDERED: IMITREX 6M6 MG/0.5 M SQ (19:41)
== END 2016-12-24 20:07 | disposition home or self-care (01) | DRG 74 ==
LOC: MEDICAL 12:40
PROVIDERS: Psychiatry & Neurology Neurology
DX: E11.43 Type 2 diabetes mellitus with diabetic autonomic (poly)neuropathy (principal); I47.1 Supraventricular tachycardia; I95.1 Orthostatic hypotension; F63.81 Intermittent explosive disorder; F31.9 Bipolar disorder, unspecified; F41.1 Generalized anxiety disorder; Z86.718 Personal history of other venous thrombosis and embolism; Z79.4 Long term (current) use of insulin; Z91.81 History of falling
CPT/HCPCS: OP; 90791-AI; A9585; G0378; G0379; G8978-GP; G8979-GP; J1650; J1815; J3030; J7030

== ENCOUNTER 2017-01-19 15:50 | Emergency (ER) | payer MEDICARE, MEDICAID ==
[~2017-01-19] VITALS: Ht 170.2 cm; Wt 85.9 kg
[~2017-01-19 15:50] MED LIST changes: +DEPAKOTE ER 50500 MG PO; +FLORINEF ACETA0.1 MG PO; +IMITREX 6M6 MG/0.5 M SQ; +ZANAFLEX2 MG PO
[2017-01-19 15:55] VITALS: TEMP 98.8
[2017-01-19 17:43] LABS: BASO # 0.1 (0.0-0.2); BASO % 0.7 % (0.0-2.0); EOS # 0.2 (0.0-0.7); EOS % 1.4 % (0-4.0); GRAN # 7.3 (1.4-6.5); GRAN % 69.6 % (42.2-75.2); HEMATOCRIT 41.4 % (37.0-47.0); HEMOGLOBIN 13.4 g/dl (12.5-16.0); LYMPH # 2.3 (1.2-3.4); LYMPH % 21.7 % (20.0-51.0); MEAN CELL VOLUME 97 fl (80.0-100.0); MEAN CORPUSCULAR HEMOGLOBIN 32 pg (27.0-31.0); MEAN CORPUSCULAR HGB CONC 32 g/dl (33.0-37.0); MEAN PLATELET VOLUME 9.5 fl (7.4-10.4); MONO # 0.6 (0.1-0.6); MONO % 5.8 % (1.7-9.3); PLATELET COUNT 201 K/mm3 (130-400); RED BLOOD COUNT 4.26 M/mm3 (4.10-5.30); WHITE BLOOD COUNT 10.5 K/mm3 (4.8-10.8)
[2017-01-19 17:53] LABS: ADJUSTED CALCIUM 8.8 mg/dL (8.4-10.2); ALANINE AMINOTRANSFERASE 25 U/L (9-52); ALBUMIN 4.3 gm/dL (3.5-5.0); ALKALINE PHOSPHATASE 51 U/L (50-136); ANION GAP 12 mmol/L (7-16); BILIRUBIN,TOTAL 0.5 mg/dL (0.0-1.0); BLOOD UREA NITROGEN 10 mg/dL (7-17); CARBON DIOXIDE 21 mmol/L (22-30); CHLORIDE 110 mmol/L (98-107); CREATININE, serum 0.94 mg/dL (0.52-1.25); GLUCOSE 111 mg/dL (74-106); LIPASE 33 U/L (23-300); POTASSIUM 3.8 mmol/L (3.4-5.0); SODIUM 144 mmol/L (137-145); TOTAL PROTEIN 7.4 gm/dL (6.4-8.2)
[2017-01-19 18:04] LABS: TROPONIN-I < 0.012 ng/mL (0.000-0.034)
[2017-01-19 18:47] LABS: COLLECTION METHOD CLEAN CATCH
[2017-01-19 18:53] LABS: MUCOUS Present /lpf; PH 7 (5-8); SQUAMOUS EPITHELIAL 0-2 /hpf; URINE APPEARANCE Clear; URINE BACTERIA None Seen /hpf; URINE BILIRUBIN Negative (NEGATIVE); URINE BLOOD Negative (NEGATIVE); URINE COLOR Yellow; URINE GLUCOSE 3+ (NEGATIVE); URINE KETONE Negative (NEGATIVE); URINE LEUKOCYTE ESTERASE Negative (NEGATIVE); URINE PROTEIN(semi-quant) Negative (NEGATIVE); URINE UROBILINOGEN Negative (NEGATIVE)
[2017-01-19] MEDS ORDERED: NORCO 325 MG-51 TAB PO (20:34)
[2017-01-19 20:45] VITALS: BP 117/82; PULSE 89
[2017-01-19] MEDS ORDERED: FLORINEF ACETA0.1 MG PO (20:47)
== END 2017-01-19 21:45 | disposition home or self-care (01) ==
LOC: COL.ER 15:50
PROVIDERS: Emergency Medicine
DX: R55 Syncope and collapse (principal); R19.7 Diarrhea, unspecified; E11.9 Type 2 diabetes mellitus without complications; G43.909 Migraine, unspecified, not intractable, without status migrainosus; F90.9 Attention-deficit hyperactivity disorder, unspecified type; E03.9 Hypothyroidism, unspecified; F31.9 Bipolar disorder, unspecified; F41.9 Anxiety disorder, unspecified; F63.81 Intermittent explosive disorder; M54.5 Low back pain; G89.29 Other chronic pain; Z79.4 Long term (current) use of insulin; Z86.711 Personal history of pulmonary embolism
CPT/HCPCS: J2405; J3010; J7030

== ENCOUNTER 2017-01-28 13:35 | Observation (INO) | payer MEDICARE, MEDICAID ==
[~2017-01-28] VITALS: Ht 167.6 cm; Wt 90.3 kg
[2017-01-28] VITALS (8 sets, daily range): BP systolic 125–141; BP diastolic 68–90; PULSE 75–95; TEMP 97.6–98.4
[2017-01-28] MEDS ORDERED: FLEXERIL 1010 MG/TAB PO (15:09)
[2017-01-28] MEDS ORDERED: SINEQUAN150 MG PO (16:24)
[2017-01-28] MEDS ORDERED: DEPAKOTE ER 50500 MG PO (16:28)
[2017-01-28] MEDS ORDERED: EFFEXOR XR75 MG/CAP PO (16:29)
[2017-01-28] MEDS ORDERED: FIORINAL 325 MG1 CAP PO (16:30)
[2017-01-28] MEDS ORDERED: NEURONTIN300 MG/CAP PO (16:31)
[2017-01-28] MEDS ORDERED: INVOKAMET1 (16:31)
[2017-01-28] MEDS ORDERED: TOPAMAX 100MG100 M1 PO (16:32)
[2017-01-28 16:39] LABS: BASO % 0.4 % (0.0-2.0); EOS # 0.2 (0.0-0.7); EOS % 2.3 % (0-4.0); GRAN # 4.9 (1.4-6.5); GRAN % 64.7 % (42.2-75.2); HEMATOCRIT 41.4 % (37.0-47.0); HEMOGLOBIN 13.6 g/dl (12.5-16.0); LYMPH # 1.9 (1.2-3.4); LYMPH % 25.5 % (20.0-51.0); MEAN CELL VOLUME 98 fl (80.0-100.0); MEAN CORPUSCULAR HEMOGLOBIN 32 pg (27.0-31.0); MEAN CORPUSCULAR HGB CONC 33 g/dl (33.0-37.0); MEAN PLATELET VOLUME 8.8 fl (7.4-10.4); MONO # 0.5 (0.1-0.6); MONO % 6.7 % (1.7-9.3); PLATELET COUNT 213 K/mm3 (130-400); RED BLOOD COUNT 4.24 M/mm3 (4.10-5.30); WHITE BLOOD COUNT 7.5 K/mm3 (4.8-10.8)
[2017-01-28 16:49] LABS: ADJUSTED CALCIUM 8.5 mg/dL (8.4-10.2); ALBUMIN 4.2 gm/dL (3.5-5.0); BILIRUBIN,TOTAL 0.5 mg/dL (0.0-1.0); CALCIUM 8.7 mg/dL (8.4-10.2); CREATININE, serum 0.8 mg/dL (0.52-1.25); POTASSIUM 3.9 mmol/L (3.4-5.0); TOTAL PROTEIN 7.4 gm/dL (6.4-8.2)
[2017-01-28] MEDS ORDERED: ULTRAM 50MG TAB50 MG PO (18:05)
[2017-01-28] MEDS ORDERED: ROBAXIN 50500 MG/TAB PO (18:07)
[2017-01-28] MEDS ORDERED: LEVOXYL0.2 MG PO (18:09)
[2017-01-28] MEDS ORDERED: LAMICTAL200 MG PO (18:09)
[2017-01-28] MEDS ORDERED: LIPITOR 40MG TA40 MG PO (18:10)
[2017-01-28] MEDS ORDERED: NOVOLOG 100U100 U/M1 SQ (18:11)
[2017-01-28] MEDS ORDERED: TRESIBA FL100 UNIT/1 SQ (18:12)
[2017-01-28] MEDS ORDERED: LYRICA200 MG PO (18:12)
[2017-01-28] MEDS ORDERED: LOVENOX 8080 MG/0.8 SQ (18:13)
[2017-01-28] MEDS ORDERED: SONATA 10MG10 MG (18:13)
[2017-01-29] VITALS (8 sets, daily range): BP systolic 102–125; BP diastolic 59–80; PULSE 80–94; TEMP 98.4–99.4
[2017-01-30 01:44] VITALS: BP 108/62; PULSE 87; TEMP 98.2
[2017-01-30 06:04] VITALS: BP 115/77; PULSE 86; TEMP 98.3
[2017-01-30 10:06] VITALS: BP 132/84; PULSE 86; TEMP 98.3
[2017-01-30 14:19] VITALS: BP 132/77; PULSE 80; TEMP 98.2
[2017-01-30] MEDS ORDERED: NORCO 325 MG-7.1 TAB PO (15:54)
[2017-01-30] MEDS ORDERED: LOVENOX 8080 MG/0.8 SQ (18:06)
== END 2017-01-30 18:10 | disposition home or self-care (01) ==
LOC: SURG 13:35
PROVIDERS: Urology
DX: N20.1 Calculus of ureter (principal); R00.0 Tachycardia, unspecified; E11.22 Type 2 diabetes mellitus with diabetic chronic kidney disease; I12.9 Hypertensive chronic kidney disease with stage 1 through stage 4 chronic kidney disease, or unspecified chronic kidney disease; N18.3 Chronic kidney disease, stage 3 (moderate); E78.00 Pure hypercholesterolemia, unspecified; F41.9 Anxiety disorder, unspecified; E03.9 Hypothyroidism, unspecified; F32.9 Major depressive disorder, single episode, unspecified; K58.9 Irritable bowel syndrome, unspecified; K76.0 Fatty (change of) liver, not elsewhere classified; Z96.0 Presence of urogenital implants; Z79.4 Long term (current) use of insulin
CPT/HCPCS: G0378; G0379; J1650; J1815; J2270; J7030

== ENCOUNTER 2017-03-08 04:21 | Emergency (ER) | payer MEDICARE, MEDICAID ==
[~2017-03-08] VITALS: Ht 167.6 cm; Wt 90.0 kg
[~2017-03-08 04:21] MED LIST changes: +FIORINAL 325 MG1 CAP PO; +INVOKAMET1; +LEVOXYL0.2 MG PO; +NEURONTIN300 MG/CAP PO; +NORCO 325 MG-7.1 TAB PO; +SINEQUAN150 MG PO; +SONATA 10MG10 MG
[2017-03-08 04:54] LABS: BASO # 0.1 (0.0-0.2); BASO % 0.7 % (0.0-2.0); EOS # 0.1 (0.0-0.7); EOS % 1.5 % (0-4.0); GRAN # 5.7 (1.4-6.5); HEMATOCRIT 45.3 % (37.0-47.0); HEMOGLOBIN 15.1 g/dl (12.5-16.0); LYMPH # 2.7 (1.2-3.4); LYMPH % 29.5 % (20.0-51.0); MEAN CELL VOLUME 95 fl (80.0-100.0); MEAN CORPUSCULAR HEMOGLOBIN 32 pg (27.0-31.0); MEAN CORPUSCULAR HGB CONC 33 g/dl (33.0-37.0); MEAN PLATELET VOLUME 9.1 fl (7.4-10.4); MONO # 0.5 (0.1-0.6); MONO % 5.8 % (1.7-9.3); PLATELET COUNT 268 K/mm3 (130-400); RED BLOOD COUNT 4.75 M/mm3 (4.10-5.30); REDCELL DISTRIBUTION WIDTH-CV 13.5 % (11.5-14.5)
[2017-03-08 05:01] LABS: ALANINE AMINOTRANSFERASE 31 U/L (9-52); ALBUMIN 4.5 gm/dL (3.5-5.0); ALKALINE PHOSPHATASE 64 U/L (50-136); ANION GAP 12 mmol/L (7-16); AST,SGOT 28 U/L (15-37); BILIRUBIN,TOTAL 0.7 mg/dL (0.0-1.0); BLOOD UREA NITROGEN 16 mg/dL (7-17); CALCIUM 8.8 mg/dL (8.4-10.2); CARBON DIOXIDE 24 mmol/L (22-30); CHLORIDE 107 mmol/L (98-107); CREATININE, serum 0.82 mg/dL (0.52-1.25); GLUCOSE 168 mg/dL (74-106); POTASSIUM 3.6 mmol/L (3.4-5.0); SODIUM 142 mmol/L (137-145); TOTAL PROTEIN 7.8 gm/dL (6.4-8.2)
[2017-03-08 05:12] LABS: TROPONIN-I < 0.012 ng/mL (0.000-0.034)
[2017-03-08] MEDS ORDERED: KLONOPIN2 MG PO (05:32)
[2017-03-08] MEDS ORDERED: ROBAXIN 50500 MG/TAB PO (05:33)
[2017-03-08] MEDS ORDERED: LEVOXYL0.2 MG PO (05:33)
[2017-03-08] MEDS ORDERED: TORADOL 10MG TA10 MG PO (05:34)
[2017-03-08] MEDS ORDERED: DEPAKOTE ER 50500 MG PO (05:35)
[2017-03-08] MEDS ORDERED: TRICOR 48MG48 MG PO (05:35)
[2017-03-08] MEDS ORDERED: SINEQUAN 5050 MG/CAP PO (05:36)
[2017-03-08] MEDS ORDERED: LAMICTAL200 MG PO (05:37)
[2017-03-08] MEDS ORDERED: AMITIZA24 MCG PO (05:37)
[2017-03-08] MEDS ORDERED: TOPAMAX 100MG100 M1 PO ×2 (05:38)
[2017-03-08] MEDS ORDERED: LIPITOR 40MG TA40 MG PO (05:38)
[2017-03-08] MEDS ORDERED: NEURONTIN300 MG/CAP PO (05:39)
[2017-03-08] MEDS ORDERED: INVOKAMET1 ×2 (05:39→05:40)
[2017-03-08] MEDS ORDERED: TRESIBA FL100 UNIT/1 SQ (05:40)
[2017-03-08] MEDS ORDERED: NOVOLOG FLEX100 U/ML SQ (05:40)
[2017-03-08] MEDS ORDERED: LYRICA200 MG PO (05:42)
[2017-03-08 05:54] VITALS: TEMP 98.1
[2017-03-08 08:29] VITALS: BP 137/98; PULSE 86
== END 2017-03-08 08:29 | disposition home or self-care (01) ==
LOC: COL.ER 04:21
PROVIDERS: Emergency Medicine
DX: I95.1 Orthostatic hypotension (principal); G43.909 Migraine, unspecified, not intractable, without status migrainosus; F41.9 Anxiety disorder, unspecified; F90.9 Attention-deficit hyperactivity disorder, unspecified type; F31.9 Bipolar disorder, unspecified; F60.3 Borderline personality disorder; E11.9 Type 2 diabetes mellitus without complications; G47.33 Obstructive sleep apnea (adult) (pediatric); Z86.711 Personal history of pulmonary embolism; Z79.4 Long term (current) use of insulin
CPT/HCPCS: J1885; J7030

== ENCOUNTER 2017-05-20 20:31 | Emergency (ER) | payer MEDICARE, MEDICAID ==
[~2017-05-20] VITALS: Ht 170.2 cm; Wt 90.0 kg
[~2017-05-20 20:31] MED LIST changes: +NOVOLOG FLEX100 U/ML SQ; +SINEQUAN 5050 MG/CAP PO; +TORADOL 10MG TA10 MG PO
[2017-05-20 20:32] VITALS: BP 147/82; PULSE 105; TEMP 99.6
[2017-05-20 20:49] LABS: COLLECTION METHOD CLEAN CATCH
[2017-05-20 20:56] LABS: PH 6 (5-8); SQUAMOUS EPITHELIAL 0-2 /hpf; URINE APPEARANCE Clear; URINE BACTERIA None Seen /hpf; URINE BILIRUBIN Negative (NEGATIVE); URINE BLOOD 2+ (NEGATIVE); URINE COLOR Straw; URINE GLUCOSE 3+ (NEGATIVE); URINE KETONE Trace (NEGATIVE); URINE LEUKOCYTE ESTERASE Negative (NEGATIVE); URINE NITRATE Negative (NEGATIVE); URINE PROTEIN(semi-quant) Negative (NEGATIVE); URINE UROBILINOGEN Negative (NEGATIVE)
== END 2017-05-20 21:33 | disposition home or self-care (01) ==
LOC: COL.ER 20:31
PROVIDERS: Nurse Practitioner
DX: N20.1 Calculus of ureter (principal); Z79.01 Long term (current) use of anticoagulants; Z79.4 Long term (current) use of insulin; Z87.442 Personal history of urinary calculi

== ENCOUNTER 2017-05-22 12:08 | Day surgery (SDC) | payer MEDICARE, MEDICAID ==
[~2017-05-22] VITALS: Ht 167.6 cm; Wt 93.8 kg
[2017-05-22 12:55] LABS: BASO % 0.5 % (0.0-2.0); EOS # 0.1 (0.0-0.7); EOS % 1.4 % (0-4.0); GRAN # 3.3 (1.4-6.5); GRAN % 51.7 % (42.2-75.2); HEMATOCRIT 42.1 % (37.0-47.0); HEMOGLOBIN 13.8 g/dl (12.5-16.0); LYMPH # 2.4 (1.2-3.4); LYMPH % 36.5 % (20.0-51.0); MEAN CELL VOLUME 96 fl (80.0-100.0); MEAN CORPUSCULAR HEMOGLOBIN 31 pg (27.0-31.0); MEAN CORPUSCULAR HGB CONC 33 g/dl (33.0-37.0); MEAN PLATELET VOLUME 10.1 fl (7.4-10.4); MONO # 0.6 (0.1-0.6); MONO % 9.6 % (1.7-9.3); PLATELET COUNT 161 K/mm3 (130-400); REDCELL DISTRIBUTION WIDTH-CV 13.6 % (11.5-14.5)
[2017-05-22 13:13] VITALS: BP 116/69; PULSE 91; TEMP 98.9
[2017-05-22 14:14] VITALS: TEMP 97.6
[2017-05-22 14:55] VITALS: BP 112/78; PULSE 90
[2017-05-22 15:10] VITALS: BP 118/82; PULSE 96
[2017-05-22 15:25] VITALS: BP 111/73; PULSE 91
== END 2017-05-22 16:00 | disposition home or self-care (01) ==
LOC: SDCO 12:08
PROVIDERS: Urology
DX: R10.12 Left upper quadrant pain (principal); R31.0 Gross hematuria; Z87.442 Personal history of urinary calculi; E11.40 Type 2 diabetes mellitus with diabetic neuropathy, unspecified; Z79.4 Long term (current) use of insulin; I10 Essential (primary) hypertension; E03.9 Hypothyroidism, unspecified; K58.9 Irritable bowel syndrome, unspecified; E78.00 Pure hypercholesterolemia, unspecified; F41.9 Anxiety disorder, unspecified; F32.9 Major depressive disorder, single episode, unspecified; Z86.711 Personal history of pulmonary embolism; I25.10 Atherosclerotic heart disease of native coronary artery without angina pectoris; G47.33 Obstructive sleep apnea (adult) (pediatric); K21.9 Gastro-esophageal reflux disease without esophagitis
CPT/HCPCS: C1769; C2617; J1100; J2405; J2704; J3010; J7030; Q9967

== ENCOUNTER 2018-01-29 12:22 | Emergency (ER) | payer MEDICARE, MEDICAID ==
[~2018-01-29] VITALS: Ht 167.6 cm; Wt 90.5 kg
[2018-01-29 12:24] VITALS: TEMP 97.1
[2018-01-29 13:25] LABS: BASO # 0.1 (0.0-0.2); BASO % 0.6 % (0.0-2.0); EOS % 0.5 % (0-4.0); GRAN # 5.1 (1.4-6.5); GRAN % 61.6 % (42.2-75.2); HEMATOCRIT 41.1 % (37.0-47.0); LYMPH # 2.8 (1.2-3.4); LYMPH % 33.2 % (20.0-51.0); MEAN CELL VOLUME 96 fl (80.0-100.0); MEAN CORPUSCULAR HEMOGLOBIN 33 pg (27.0-31.0); MEAN CORPUSCULAR HGB CONC 34 g/dl (33.0-37.0); MEAN PLATELET VOLUME 9.1 fl (7.4-10.4); MONO # 0.3 (0.1-0.6); MONO % 3.7 % (1.7-9.3); PLATELET COUNT 228 K/mm3 (130-400); RED BLOOD COUNT 4.27 M/mm3 (4.10-5.30); REDCELL DISTRIBUTION WIDTH-CV 14.3 % (11.5-14.5)
[2018-01-29 13:36] LABS: ALANINE AMINOTRANSFERASE 24 U/L (9-52); ALKALINE PHOSPHATASE 49 U/L (50-136); ANION GAP 9 mmol/L (7-16); AST,SGOT 20 U/L (15-37); BILIRUBIN,TOTAL 0.7 mg/dL (0.0-1.0); BLOOD UREA NITROGEN 10 mg/dL (7-17); CALCIUM 8.9 mg/dL (8.4-10.2); CARBON DIOXIDE 24 mmol/L (22-30); CHLORIDE 108 mmol/L (98-107); CREATININE, serum 0.83 mg/dL (0.52-1.25); GLUCOSE 223 mg/dL (74-106); POTASSIUM 3.8 mmol/L (3.4-5.0); SODIUM 141 mmol/L (137-145); TOTAL PROTEIN 6.9 gm/dL (6.4-8.2)
[2018-01-29 13:49] LABS: TROPONIN-I < 0.012 ng/mL (0.000-0.034)
[2018-01-29] MEDS ORDERED: MINIPRESS 5M5 MG/CAP PO (14:40)
[2018-01-29] MEDS ORDERED: LIORESAL 1010 MG/TAB PO (14:40)
[2018-01-29] MEDS ORDERED: PROAMATINE 5MG T5 MG PO (14:41)
[2018-01-29] MEDS ORDERED: BUSPAR DIVIDOSE15 MG PO (14:41)
[2018-01-29] MEDS ORDERED: CALAN120 MG PO (14:42)
[2018-01-29] MEDS ORDERED: PROAIR HFA0.09 MG/AC IH (15:12)
[2018-01-29 16:26] VITALS: BP 142/91; PULSE 77
== END 2018-01-29 16:28 | disposition home or self-care (01) ==
LOC: COL.ER 12:22
PROVIDERS: Physician Assistant
DX: R07.89 Other chest pain (principal); R06.02 Shortness of breath; I10 Essential (primary) hypertension; E11.9 Type 2 diabetes mellitus without complications; E78.5 Hyperlipidemia, unspecified; F31.9 Bipolar disorder, unspecified; G43.909 Migraine, unspecified, not intractable, without status migrainosus; Z79.4 Long term (current) use of insulin; Z87.09 Personal history of other diseases of the respiratory system; Z98.890 Other specified postprocedural states
CPT/HCPCS: J1100

== ENCOUNTER → 2018-06-15 | Outpatient (CLI) | payer MEDICARE ==
[~2018-06-15] MED LIST changes: +BUSPAR DIVIDOSE15 MG PO; +CALAN120 MG PO; +LIORESAL 1010 MG/TAB PO; +MINIPRESS 5M5 MG/CAP PO; +PROAIR HFA0.09 MG/AC IH; +PROAMATINE 5MG T5 MG PO
== END ==
LOC: COL.PUL 05-10 10:00
DX: R06.02 Shortness of breath (principal)
CPT/HCPCS: J7674

== ENCOUNTER 2018-10-26 10:14 | Emergency (ER) | payer MEDICARE ==
[~2018-10-26] VITALS: Ht 167.6 cm; Wt 83.2 kg
[2018-10-26 10:18] VITALS: BP 162/92; TEMP 98.3
[2018-10-26 11:14] LABS: BASO # 0.1 (0.0-0.2); BASO % 0.6 % (0.0-2.0); EOS # 0.2 (0.0-0.7); EOS % 2.2 % (0-4.0); GRAN # 6.4 (1.4-6.5); HEMATOCRIT 48.8 % (37.0-47.0); HEMOGLOBIN 16.3 g/dl (12.5-16.0); LYMPH # 1.7 (1.2-3.4); LYMPH % 19.1 % (20.0-51.0); MEAN CELL VOLUME 96 fl (80.0-100.0); MEAN CORPUSCULAR HEMOGLOBIN 32 pg (27.0-31.0); MEAN CORPUSCULAR HGB CONC 33 g/dl (33.0-37.0); MEAN PLATELET VOLUME 9.1 fl (7.4-10.4); MONO # 0.3 (0.1-0.6); MONO % 3.8 % (1.7-9.3); PLATELET COUNT 224 K/mm3 (130-400); REDCELL DISTRIBUTION WIDTH-CV 12.6 % (11.5-14.5)
[2018-10-26 11:29] LABS: ALANINE AMINOTRANSFERASE 22 U/L (9-52); ALBUMIN 4.6 gm/dL (3.5-5.0); ALKALINE PHOSPHATASE 64 U/L (50-136); ANION GAP 11 mmol/L (7-16); AST,SGOT 30 U/L (15-37); BILIRUBIN,TOTAL 0.6 mg/dL (0.0-1.0); BLOOD UREA NITROGEN 11 mg/dL (7-17); C-REACTIVE PROTEIN 0.5 mg/dL (0.0-0.9); CALCIUM 9.4 mg/dL (8.4-10.2); CARBON DIOXIDE 26 mmol/L (22-30); CHLORIDE 103 mmol/L (98-107); CREATININE, serum 0.61 (0.52-1.25); GLUCOSE 245 mg/dL (74-106); LIPASE 63 U/L (23-300); MAGNESIUM 1.7 mg/dL (1.6-2.3); POTASSIUM 4.3 mmol/L (3.4-5.0); SODIUM 139 mmol/L (137-145); TOTAL PROTEIN 8.1 gm/dL (6.4-8.2)
[2018-10-26 11:37] LABS: TROPONIN-I < 0.012 ng/mL (0.000-0.035)
[2018-10-26 14:50] VITALS: PULSE 72
== END 2018-10-26 14:50 | disposition home or self-care (01) ==
LOC: COL.ER 10:14
PROVIDERS: Emergency Medicine
DX: R07.89 Other chest pain (principal); F31.9 Bipolar disorder, unspecified; J45.909 Unspecified asthma, uncomplicated; Z79.4 Long term (current) use of insulin
CPT/HCPCS: J1170; J8540

== ENCOUNTER → 2018-12-29 | Outpatient (CLI) | payer MEDICARE | LOC: COL.VAS 10:52 | DX: R00.0 Tachycardia, unspecified (principal) ==

== ENCOUNTER 2019-02-07 13:07 | Emergency (ER) | payer MEDICARE ==
[~2019-02-07] VITALS: Ht 167.6 cm; Wt 83.6 kg
[2019-02-07 13:26] VITALS: BP 133/86
[2019-02-07] MEDS ORDERED: AMOXICILLIN 8751 TAB PO (14:36)
[2019-02-07 14:58] VITALS: PULSE 73; TEMP 98.7
== END 2019-02-07 14:58 | disposition home or self-care (01) ==
LOC: COL.ER 13:07
DX: J01.90 Acute sinusitis, unspecified (principal); E11.9 Type 2 diabetes mellitus without complications; J45.909 Unspecified asthma, uncomplicated; G43.909 Migraine, unspecified, not intractable, without status migrainosus; F41.9 Anxiety disorder, unspecified; E03.9 Hypothyroidism, unspecified; Z79.4 Long term (current) use of insulin

== ENCOUNTER 2019-04-06 17:57 | Emergency (ER) | payer MEDICARE ==
[~2019-04-06] VITALS: Ht 167.6 cm; Wt 80.0 kg
[~2019-04-06 17:57] MED LIST changes: +AMOXICILLIN 8751 TAB PO
[2019-04-06 18:10] VITALS: TEMP 98.8
[2019-04-06 19:27] LABS: BASO # 0.1 (0.0-0.2); BASO % 0.8 % (0.0-2.0); EOS # 0.2 (0.0-0.7); EOS % 2.4 % (0-4.0); GRAN # 4.6 (1.4-6.5); GRAN % 63.2 % (42.2-75.2); HEMATOCRIT 40.2 % (37.0-47.0); HEMOGLOBIN 13.3 g/dl (12.5-16.0); LYMPH % 27.4 % (20.0-51.0); MEAN CELL VOLUME 95 fl (80.0-100.0); MEAN CORPUSCULAR HEMOGLOBIN 32 pg (27.0-31.0); MEAN CORPUSCULAR HGB CONC 33 g/dl (33.0-37.0); MEAN PLATELET VOLUME 8.6 fl (7.4-10.4); MONO # 0.4 (0.1-0.6); MONO % 5.6 % (1.7-9.3); PLATELET COUNT 263 K/mm3 (130-400); RED BLOOD COUNT 4.22 M/mm3 (4.10-5.30); REDCELL DISTRIBUTION WIDTH-CV 12.3 % (11.5-14.5)
[2019-04-06 19:36] LABS: ALBUMIN 3.8 gm/dL (3.5-5.0); BILIRUBIN,TOTAL 0.5 mg/dL (0.0-1.0); C-REACTIVE PROTEIN 1.2 mg/dL (0.0-0.9); CALCIUM 8.8 mg/dL (8.4-10.2); CREATININE, serum 0.55 (0.52-1.25); POTASSIUM 3.8 mmol/L (3.4-5.0); TOTAL PROTEIN 6.9 gm/dL (6.4-8.2)
[2019-04-06 19:46] LABS: TROPONIN-I 0.027 ng/mL (0.000-0.035)
[2019-04-06] MEDS ORDERED: PERCOCET 325 MG1 TA3 PO (21:30)
[2019-04-06 21:48] VITALS: BP 135/93; PULSE 82
== END 2019-04-06 21:48 | disposition home or self-care (01) ==
LOC: COL.ER 17:57
PROVIDERS: Emergency Medicine
DX: R07.89 Other chest pain (principal); I10 Essential (primary) hypertension; E78.5 Hyperlipidemia, unspecified; E11.9 Type 2 diabetes mellitus without complications; Z86.79 Personal history of other diseases of the circulatory system; Z79.4 Long term (current) use of insulin
CPT/HCPCS: J2405; J3010; J7030; Q9967

== ENCOUNTER 2019-07-07 15:10 | Emergency (ER) | payer MEDICARE ==
[~2019-07-07] VITALS: Ht 165.1 cm; Wt 78.6 kg
[~2019-07-07 15:10] MED LIST changes: +00186-0372-20 IH; +ATARAX 25MG25 MG/TAB PO; +ATIVAN 0.50.5 MG/TAB PO; +CEFACLOR250 MG PO; +COLCRYS0.6 MG PO; +MACROBID 1100 MG/CAP PO; +NITROSTAT0.4 MG/TAB SL; +PERCOCET 325 MG1 TA3 PO; +REMERON 15M15 MG/TA1 PO; +VIIBRYD20 MG PO; +ZYPREXA7.5 MG PO
[2019-07-07 15:17] VITALS: TEMP 98.7
[2019-07-07 15:49] LABS: COLLECTION METHOD CLEAN CATCH
[2019-07-07 15:54] LABS: BASO # 0.1 (0.0-0.2); BASO % 0.7 % (0.0-2.0); EOS # 0.1 (0.0-0.7); EOS % 1.8 % (0-4.0); GRAN # 4.6 (1.4-6.5); GRAN % 63.5 % (42.2-75.2); HEMATOCRIT 43.6 % (37.0-47.0); HEMOGLOBIN 14.9 g/dl (12.5-16.0); LYMPH # 1.9 (1.2-3.4); MEAN CELL VOLUME 90 fl (80.0-100.0); MEAN CORPUSCULAR HEMOGLOBIN 31 pg (27.0-31.0); MEAN CORPUSCULAR HGB CONC 34 g/dl (33.0-37.0); MEAN PLATELET VOLUME 9.3 fl (7.4-10.4); MONO # 0.6 (0.1-0.6); MONO % 7.7 % (1.7-9.3); PLATELET COUNT 177 K/mm3 (130-400); RED BLOOD COUNT 4.83 M/mm3 (4.10-5.30); REDCELL DISTRIBUTION WIDTH-CV 12.8 % (11.5-14.5)
[2019-07-07 16:03] LABS: MUCOUS Present /lpf; PH 6 (5-8); SQUAMOUS EPITHELIAL 0-2 /hpf; URINE APPEARANCE Clear; URINE BACTERIA Occasional /hpf; URINE BILIRUBIN Negative (NEGATIVE); URINE BLOOD Negative (NEGATIVE); URINE COLOR Yellow; URINE GLUCOSE 3+ (NEGATIVE); URINE KETONE Negative (NEGATIVE); URINE LEUKOCYTE ESTERASE Negative (NEGATIVE); URINE NITRATE Negative (NEGATIVE); URINE PROTEIN(semi-quant) Negative (NEGATIVE); URINE RBC 0-2 /hpf; URINE UROBILINOGEN Negative (NEGATIVE)
[2019-07-07 16:06] LABS: ALBUMIN 3.9 gm/dL (3.5-5.0); BILIRUBIN,TOTAL 0.8 mg/dL (0.0-1.0); CALCIUM 8.8 mg/dL (8.4-10.2); CREATININE, serum 0.53 (0.52-1.25); POTASSIUM 3.8 mmol/L (3.4-5.0); TOTAL PROTEIN 6.9 gm/dL (6.4-8.2)
[2019-07-07] MEDS ORDERED: FIORICET 325 MG1 TA1 PO (17:59)
[2019-07-07 18:00] VITALS: BP 131/90; PULSE 96
== END 2019-07-07 18:11 | disposition home or self-care (01) ==
LOC: COL.ER 15:10
PROVIDERS: Family Medicine
DX: G43.909 Migraine, unspecified, not intractable, without status migrainosus (principal); I10 Essential (primary) hypertension; E11.9 Type 2 diabetes mellitus without complications; Z79.4 Long term (current) use of insulin
CPT/HCPCS: J0595; J1200; J1790; J1815

== ENCOUNTER 2019-08-15 02:11 | Emergency (ER) | payer MEDICARE ==
[~2019-08-15] VITALS: Ht 167.6 cm; Wt 80.9 kg
[2019-08-15 02:13] VITALS: TEMP 98.3
[2019-08-15 04:40] VITALS: BP 151/104; PULSE 98
[2019-08-18] MEDS ORDERED: SYNTHROID0.2 MG/TAB PO (13:06)
[2019-08-18] MEDS ORDERED: CEFTIN 250250 MG/TAB PO (16:13)
== END 2019-08-15 04:40 | disposition home or self-care (01) ==
LOC: COL.ER 02:11
DX: G43.909 Migraine, unspecified, not intractable, without status migrainosus (principal); E03.9 Hypothyroidism, unspecified; E11.9 Type 2 diabetes mellitus without complications; F41.9 Anxiety disorder, unspecified; Z79.890 Hormone replacement therapy; Z79.4 Long term (current) use of insulin
CPT/HCPCS: J0595; J1200; J1885; J2550; J2765; J7030

== ENCOUNTER 2020-02-14 18:54 | Emergency (ER) | payer MEDICARE ==
[~2020-02-14] VITALS: Ht 167.6 cm; Wt 76.4 kg
[~2020-02-14 18:54] MED LIST changes: +CEFTIN 250250 MG/TAB PO
[2020-02-14 19:24] VITALS: TEMP 97.7
[2020-02-14 20:11] LABS: BASO # 0.1 (0.0-0.2); BASO % 0.5 % (0.0-2.0); EOS % 0.4 % (0-4.0); GRAN # 7.8 (1.4-6.5); GRAN % 70.6 % (42.2-75.2); HEMATOCRIT 44.9 % (37.0-47.0); HEMOGLOBIN 15.9 g/dl (12.5-16.0); LYMPH # 2.5 (1.2-3.4); LYMPH % 22.9 % (20.0-51.0); MEAN CELL VOLUME 91 fl (80.0-100.0); MEAN CORPUSCULAR HEMOGLOBIN 32 pg (27.0-31.0); MEAN CORPUSCULAR HGB CONC 35 g/dl (33.0-37.0); MEAN PLATELET VOLUME 9.1 fl (7.4-10.4); MONO # 0.6 (0.1-0.6); MONO % 5.2 % (1.7-9.3); PLATELET COUNT 270 K/mm3 (130-400); RED BLOOD COUNT 4.92 M/mm3 (4.10-5.30); REDCELL DISTRIBUTION WIDTH-CV 12.6 % (11.5-14.5)
[2020-02-14 20:17] LABS: PROTHROMBIN TIME 11.4 SECONDS (9.7-12.8)
[2020-02-14 20:20] LABS: PARTIAL THROMBOPLASTIN TIME 24.3 SECONDS (26.0-37.0)
[2020-02-14 20:22] LABS: ALBUMIN 3.9 gm/dL (3.5-5.0); BILIRUBIN,TOTAL 1.3 mg/dL (0.0-1.0); CALCIUM 8.8 mg/dL (8.4-10.2); CREATININE, serum 0.72 (0.52-1.25); POTASSIUM 3.3 mmol/L (3.4-5.0); TOTAL PROTEIN 6.8 gm/dL (6.4-8.2)
[2020-02-14] MEDS ORDERED: VOLTAREN 75 DR75 MG PO (21:11)
[2020-02-14 21:35] VITALS: BP 138/95; PULSE 82
== END 2020-02-14 21:35 | disposition home or self-care (01) ==
LOC: COL.ER 18:54
PROVIDERS: Emergency Medicine
DX: S20.219A Contusion of unspecified front wall of thorax, initial encounter (principal); F07.81 Postconcussional syndrome; G43.909 Migraine, unspecified, not intractable, without status migrainosus; Z95.818 Presence of other cardiac implants and grafts; Z79.4 Long term (current) use of insulin; Z79.51 Long term (current) use of inhaled steroids; W10.9XXA Fall (on) (from) unspecified stairs and steps, initial encounter
CPT/HCPCS: J1170; J2405; Q9967

== ENCOUNTER 2020-05-31 12:50 | Emergency (ER) | payer MEDICARE ==
[~2020-05-31] VITALS: Ht 167.6 cm; Wt 76.4 kg
[~2020-05-31 12:50] MED LIST changes: +VOLTAREN 75 DR75 MG PO
[2020-05-31 13:10] VITALS: TEMP 98
[2020-05-31 14:19] LABS: BASO % 0.6 % (0.0-2.0); EOS # 0.1 (0.0-0.7); EOS % 1.3 % (0-4.0); GRAN # 3.8 (1.4-6.5); GRAN % 56.4 % (42.2-75.2); HEMATOCRIT 47.2 % (37.0-47.0); LYMPH # 2.4 (1.2-3.4); LYMPH % 35.8 % (20.0-51.0); MEAN CELL VOLUME 97 fl (80.0-100.0); MEAN CORPUSCULAR HEMOGLOBIN 33 pg (27.0-31.0); MEAN CORPUSCULAR HGB CONC 34 g/dl (33.0-37.0); MEAN PLATELET VOLUME 9.5 fl (7.4-10.4); MONO # 0.4 (0.1-0.6); MONO % 5.5 % (1.7-9.3); PLATELET COUNT 229 K/mm3 (130-400); RED BLOOD COUNT 4.89 M/mm3 (4.10-5.30)
[2020-05-31 14:25] LABS: COLLECTION METHOD CLEAN CATCH
[2020-05-31 14:27] LABS: ALANINE AMINOTRANSFERASE 28 U/L (4-34); ALKALINE PHOSPHATASE 67 U/L (50-136); ANION GAP 9 mmol/L (7-16); AST,SGOT 29 U/L (15-37); BILIRUBIN,TOTAL 1.5 mg/dL (0.0-1.0); BLOOD UREA NITROGEN 10 mg/dL (7-17); CALCIUM 8.6 mg/dL (8.4-10.2); CARBON DIOXIDE 24 mmol/L (22-30); CHLORIDE 100 mmol/L (98-107); CREATININE, serum 0.64 (0.52-1.25); GLUCOSE 367 mg/dL (74-106); LIPASE 36 U/L (23-300); POTASSIUM 3.9 mmol/L (3.4-5.0); SODIUM 133 mmol/L (137-145); TOTAL PROTEIN 7.4 gm/dL (6.4-8.2)
[2020-05-31 14:29] LABS: C-REACTIVE PROTEIN < 0.5 mg/dL (0.0-0.9)
[2020-05-31 14:36] LABS: TROPONIN-I < 0.012 ng/mL (0.000-0.035)
[2020-05-31 15:00] LABS: PH 6 (5-8); SQUAMOUS EPITHELIAL 0-2 /hpf; URINE APPEARANCE Clear; URINE BACTERIA None Seen /hpf; URINE BILIRUBIN Negative (NEGATIVE); URINE BLOOD Negative (NEGATIVE); URINE COLOR Yellow; URINE GLUCOSE 3+ (NEGATIVE); URINE KETONE Negative (NEGATIVE); URINE LEUKOCYTE ESTERASE Negative (NEGATIVE); URINE NITRATE Negative (NEGATIVE); URINE PROTEIN(semi-quant) Negative (NEGATIVE); URINE RBC None Seen /hpf
[2020-05-31 16:17] VITALS: BP 154/89; PULSE 78
== END 2020-05-31 16:20 | disposition home or self-care (01) ==
LOC: COL.ER 12:50
PROVIDERS: Nurse Practitioner Primary Care
DX: R51.9 Headache, unspecified (principal); R07.89 Other chest pain; E11.9 Type 2 diabetes mellitus without complications; I10 Essential (primary) hypertension; F41.9 Anxiety disorder, unspecified; E03.9 Hypothyroidism, unspecified; Z79.51 Long term (current) use of inhaled steroids; Z86.69 Personal history of other diseases of the nervous system and sense organs; Z79.4 Long term (current) use of insulin; Z79.890 Hormone replacement therapy
CPT/HCPCS: J0595; J1200; J2405; J7030

== ENCOUNTER 2020-07-12 10:37 | Observation (INO) | payer MEDICARE ==
[~2020-07-12] VITALS: Ht 167.6 cm; Wt 75.5 kg
[2020-07-12 12:25] LABS: BASO % 0.5 % (0.0-2.0); EOS # 0.1 (0.0-0.7); EOS % 0.7 % (0-4.0); GRAN % 69.3 % (42.2-75.2); HEMATOCRIT 49.7 % (37.0-47.0); HEMOGLOBIN 17.1 g/dl (12.5-16.0); LYMPH # 2.1 (1.2-3.4); MEAN CELL VOLUME 93 fl (80.0-100.0); MEAN CORPUSCULAR HEMOGLOBIN 32 pg (27.0-31.0); MEAN CORPUSCULAR HGB CONC 34 g/dl (33.0-37.0); MEAN PLATELET VOLUME 9.2 fl (7.4-10.4); MONO # 0.5 (0.1-0.6); MONO % 5.3 % (1.7-9.3); PLATELET COUNT 221 K/mm3 (130-400); RED BLOOD COUNT 5.32 M/mm3 (4.10-5.30); REDCELL DISTRIBUTION WIDTH-CV 11.8 % (11.5-14.5)
[2020-07-12 12:34] LABS: ALANINE AMINOTRANSFERASE 20 U/L (4-34); ALBUMIN 4.3 gm/dL (3.5-5.0); ALKALINE PHOSPHATASE 66 U/L (50-136); ANION GAP 10 mmol/L (7-16); AST,SGOT 22 U/L (15-37); BILIRUBIN,TOTAL 1.1 mg/dL (0.0-1.0); BLOOD UREA NITROGEN 11 mg/dL (7-17); CALCIUM 9.5 mg/dL (8.4-10.2); CARBON DIOXIDE 24 mmol/L (22-30); CHLORIDE 99 mmol/L (98-107); GLUCOSE 341 mg/dL (74-106); POTASSIUM 3.6 mmol/L (3.4-5.0); SODIUM 133 mmol/L (137-145); TOTAL PROTEIN 7.6 gm/dL (6.4-8.2)
[2020-07-12 12:43] LABS: C-REACTIVE PROTEIN < 0.5 mg/dL (0.0-0.9)
[2020-07-12 12:48] VITALS: BP 131/88; PULSE 113
[2020-07-12 12:48] LABS: TROPONIN-I < 0.012 ng/mL (0.000-0.035)
[2020-07-12] MEDS ORDERED: INDERAL 10MG10 MG PO (20:40)
[2020-07-12] MEDS ORDERED: NEURONTIN100 MG/CAP PO (20:40)
[2020-07-12] MEDS ORDERED: MINIPRESS 5M5 MG/CAP PO (20:43)
[2020-07-12 21:04] VITALS: BP 166/109; PULSE 84; TEMP 98.5
[2020-07-12] MEDS ORDERED: NEURONTIN300 MG/CAP PO (21:10)
[2020-07-12] MEDS ORDERED: EMGALITY120 MG/1 M SQ (21:11)
[2020-07-12] MEDS ORDERED: UBRELVY50 MG PO (21:12)
[2020-07-12] MEDS ORDERED: VIIBRYD40 MG PO (21:18)
[2020-07-12] MEDS ORDERED: INDERAL40 MG PO (21:18)
[2020-07-12] MEDS ORDERED: LUNESTA3 MG PO (22:29)
[2020-07-13] VITALS (8 sets, daily range): BP systolic 101–155; BP diastolic 58–100; PULSE 62–105; TEMP 98.2–99
--- NOTE | 2020-07-13 03:59 | NUR ---
PATIENT ADMISSION DONE. ADMITTED FOR SYNCOPY. MEDICATION RECONCILATION DONE. PATIENT ASK FOR HER MEDICATIONS. NEW ORDER FOR AMBIEN GIVEN. PATIENT REQUESTED MUSCLE RELAXER, MD AWARE AND NO NEW ORDERS WERE GIVEN. ZOFRAN 4 MG GIVEN FOR NAUSEA WITH GOOD EFFECT. OUT OF BED WITH SBA. B/P ELEVATED, PHAMARCY CONSULTED TO REVIEW HOME MEDICATIONS. CALL WITHIN REACH. PATIENT CALL APPROPRIATELY. NO EVENT OVER NIGHT. WILL CONTINUE TO MONITOR.
[2020-07-13 07:35] LABS: BASO % 0.5 % (0.0-2.0); EOS # 0.1 (0.0-0.7); EOS % 1.1 % (0-4.0); GRAN # 4.4 (1.4-6.5); GRAN % 59.1 % (42.2-75.2); HEMATOCRIT 47.8 % (37.0-47.0); HEMOGLOBIN 16.6 g/dl (12.5-16.0); LYMPH # 2.4 (1.2-3.4); LYMPH % 32.7 % (20.0-51.0); MEAN CELL VOLUME 92 fl (80.0-100.0); MEAN CORPUSCULAR HEMOGLOBIN 32 pg (27.0-31.0); MEAN CORPUSCULAR HGB CONC 35 g/dl (33.0-37.0); MEAN PLATELET VOLUME 9.2 fl (7.4-10.4); MONO # 0.5 (0.1-0.6); MONO % 6.3 % (1.7-9.3); PLATELET COUNT 193 K/mm3 (130-400); RED BLOOD COUNT 5.18 M/mm3 (4.10-5.30); REDCELL DISTRIBUTION WIDTH-CV 11.9 % (11.5-14.5)
[2020-07-13 07:52] LABS: ALBUMIN 3.7 gm/dL (3.5-5.0); CALCIUM 8.7 mg/dL (8.4-10.2); CREATININE, serum 0.58 (0.52-1.25); PHOSPHOROUS 4.9 mg/dL (2.5-4.5); POTASSIUM 3.4 mmol/L (3.4-5.0)
--- NOTE | 2020-07-13 09:27 | NUR ---
Initial visit; Patient thanked Relationship Counselor for looking in on her and offering prayer and God's blessings.
--- NOTE | 2020-07-13 10:53 | NUR ---
Initial visit; Patient thanked Supervisor Poultry Hatchery for offering empathy and prayer. Patient is weepy and said she especially needed support and prayer.
--- NOTE | 2020-07-13 15:44 | NUR ---
Lead Database Developer met with patient to discuss discharge planning. Patient lives in [place] with her fiance, Theo and son, Hector (age 15). [address] Dr[address] Frazier for primary care and obtains medications from [facility]. Patient advised she uses oxygen at home from [facility] and is normally independent with ADLS. Patient is and has three children: Tere (age 23), Jose (age 19), and Hector. Patient does not have Advance Directives but was interested in completing DPOA-HC form, where she chose to designate her mother, Emily (ph#[phone]) and her oldest son. Patient advised she works from home for the [employer]. Per patient's request, SW obtained a note from Hospitalist that patient has been admitted and provided it to patient's employer. Discharge Plan: Home
--- NOTE | 2020-07-13 18:54 | NUR ---
Patient resting in bed at this time. Patient is alert and oriented, answers questions appropriately. Patient has displayed no syncopal symptoms and has reported no chest pain today, requested PRN pain medication several times today for head pain, VS WNL. Patient also requests PRN nausea medication, administered per patient request, patient is able to eat and keep down olive garden ordered for delivery. Call light within reach.
[2020-07-14 04:44] VITALS: BP 108/64; PULSE 50
[2020-07-14 08:21] VITALS: BP 130/84; PULSE 78; TEMP 98.8
[2020-07-14 11:52] VITALS: BP 125/73; PULSE 53; TEMP 98.6
--- NOTE | 2020-07-14 15:18 | NUR ---
Pt stating "I feel a lot better today, havent had any episodes of being dizzy today and I was able to shower and everything without any problems. And at this point we are not doing anything for me, no more IV fluid and the doctors have stopped all me mental health medications and I dont like stopping those all at once. Can you ask the doctor to discharge me?" MD Jagjit informed and agreed to discharge pt home - MD aware pt heart rate 48-65bpm.
[2020-07-14] MEDS ORDERED: INDERAL60 MG PO (15:43)
== END 2020-07-14 16:30 | disposition home or self-care (01) ==
LOC: COL.ER 10:37 → SURG 16:38
PROVIDERS: Nurse Practitioner; ADMIT Emergency Medicine
DX: R55 Syncope and collapse (principal); G44.209 Tension-type headache, unspecified, not intractable; G43.909 Migraine, unspecified, not intractable, without status migrainosus; E11.9 Type 2 diabetes mellitus without complications; G47.30 Sleep apnea, unspecified; E03.9 Hypothyroidism, unspecified; I10 Essential (primary) hypertension; I26.99 Other pulmonary embolism without acute cor pulmonale; I47.1 Supraventricular tachycardia; K58.9 Irritable bowel syndrome, unspecified; F31.9 Bipolar disorder, unspecified; F42.9 Obsessive-compulsive disorder, unspecified; Z79.4 Long term (current) use of insulin; Z79.890 Hormone replacement therapy; Z79.899 Other long term (current) drug therapy
CPT/HCPCS: 99222-AI; 99233-AI; 99239; G0378; J0595; J1200; J1815; J1885; J2405; J7030; J7120; Q9967

== ENCOUNTER 2020-07-25 18:37 | Observation (INO) | payer MEDICARE ==
[~2020-07-25] VITALS: Ht 167.6 cm; Wt 74.5 kg
[~2020-07-25 18:37] MED LIST changes: +EMGALITY120 MG/1 M SQ; +INDERAL 10MG10 MG PO; +INDERAL40 MG PO; +INDERAL60 MG PO; +NEURONTIN100 MG/CAP PO; +UBRELVY50 MG PO; +VIIBRYD40 MG PO
[2020-07-25 19:38] LABS: BASO # 0.1 (0.0-0.2); BASO % 0.5 % (0.0-2.0); EOS # 0.1 (0.0-0.7); EOS % 0.6 % (0-4.0); GRAN # 6.2 (1.4-6.5); GRAN % 67.2 % (42.2-75.2); HEMATOCRIT 50.4 % (37.0-47.0); HEMOGLOBIN 17.4 g/dl (12.5-16.0); LYMPH # 2.5 (1.2-3.4); LYMPH % 26.8 % (20.0-51.0); MEAN CELL VOLUME 94 fl (80.0-100.0); MEAN CORPUSCULAR HEMOGLOBIN 32 pg (27.0-31.0); MEAN CORPUSCULAR HGB CONC 35 g/dl (33.0-37.0); MEAN PLATELET VOLUME 9.1 fl (7.4-10.4); MONO # 0.4 (0.1-0.6); MONO % 4.7 % (1.7-9.3); PLATELET COUNT 258 K/mm3 (130-400); RED BLOOD COUNT 5.39 M/mm3 (4.10-5.30)
[2020-07-25 19:48] LABS: ALANINE AMINOTRANSFERASE 23 U/L (4-34); ALBUMIN 4.7 gm/dL (3.5-5.0); ALKALINE PHOSPHATASE 66 U/L (50-136); ANION GAP 10 mmol/L (7-16); AST,SGOT 35 U/L (15-37); BILIRUBIN,TOTAL 1.9 mg/dL (0.0-1.0); BLOOD UREA NITROGEN 11 mg/dL (7-17); CALCIUM 9.3 mg/dL (8.4-10.2); CARBON DIOXIDE 24 mmol/L (22-30); CHLORIDE 102 mmol/L (98-107); CREATININE, serum 0.56 (0.52-1.25); GLUCOSE 169 mg/dL (74-106); POTASSIUM 3.6 mmol/L (3.4-5.0); SODIUM 136 mmol/L (137-145); TOTAL PROTEIN 8.6 gm/dL (6.4-8.2)
[2020-07-25 19:58] LABS: INR 1.1 (0.8-3.0); PROTHROMBIN TIME 11.8 SECONDS (9.7-12.8)
[2020-07-25 20:01] LABS: PARTIAL THROMBOPLASTIN TIME 25.4 SECONDS (26.0-37.0)
[2020-07-25 20:17] LABS: TROPONIN-I < 0.012 ng/mL (0.000-0.035)
[2020-07-26] MEDS ORDERED: INDERAL 20MG20 MG PO (01:52)
[2020-07-26 02:22] VITALS: BP 147/94; PULSE 73; TEMP 98.1
--- NOTE | 2020-07-26 02:36 | NUR ---
ADMITTED TO ROOM 323 PER W/C FROM ER. PT WAKE AND ORIENTED. MIGRAINE PAIN LEVEL 4/10. ORIENTED TO ROOM.
[2020-07-26 02:48] LABS: MAGNESIUM 1.8 mg/dL (1.6-2.3)
--- NOTE | 2020-07-26 03:26 | NUR ---
ASSISTED PT TO BR. VOIDED W/O DIFFICULTY. BACK TO BED. RESTING NOW.
[2020-07-26 03:48] VITALS: BP 135/93; PULSE 65; TEMP 97.9
--- NOTE | 2020-07-26 06:45 | NUR ---
bedside shift report received from FELIZ Menon
[2020-07-26 06:55] LABS: BASO # 0.1 (0.0-0.2); BASO % 0.9 % (0.0-2.0); EOS # 0.1 (0.0-0.7); EOS % 1.3 % (0-4.0); GRAN # 4.9 (1.4-6.5); GRAN % 65.4 % (42.2-75.2); HEMATOCRIT 47.6 % (37.0-47.0); HEMOGLOBIN 16.4 g/dl (12.5-16.0); LYMPH % 27.4 % (20.0-51.0); MEAN CELL VOLUME 94 fl (80.0-100.0); MEAN CORPUSCULAR HEMOGLOBIN 32 pg (27.0-31.0); MEAN CORPUSCULAR HGB CONC 35 g/dl (33.0-37.0); MEAN PLATELET VOLUME 9.5 fl (7.4-10.4); MONO # 0.4 (0.1-0.6); MONO % 4.9 % (1.7-9.3); PLATELET COUNT 242 K/mm3 (130-400); RED BLOOD COUNT 5.06 M/mm3 (4.10-5.30); REDCELL DISTRIBUTION WIDTH-CV 12.2 % (11.5-14.5)
[2020-07-26 07:08] LABS: CHOLESTEROL RISK RATIO 5.8
--- NOTE | 2020-07-26 07:54 | NUR ---
appears to be sleeping, IV occluded and awakened and repostioned her left arm, denies needs at this time
[2020-07-26 08:00] VITALS: BP 113/79; PULSE 98; TEMP 98
--- NOTE | 2020-07-26 09:04 | NUR ---
appears to be sleeping when entered room, resp quiet and easy, awakened and full assessment completed, see interventions for further info, when asked how she is she then states she has a "terrible" headache, will check for order for PRN medicine for headache, informed she is still to be NPO for cardiology consult,
--- NOTE | 2020-07-26 09:41 | NUR ---
offered tylenol for her headache and she refuses stating it won't help she is having a migraine not just a headache, Nathalia, in attempting to restart IV, patient informed will provide IV pain med once IV restarted
--- NOTE | 2020-07-26 09:54 | NUR ---
medicated with morphine 2mg slow IV for c/os migraine, Brooke Graham APRN in to see patient
--- NOTE | 2020-07-26 10:22 | NUR ---
patient sitting up in bed eating breakfast brought in by visitor, states she was told by Jay Jay Grande's nurse it was OK to eat, bedside shift report given to FELIZ Coombs
--- NOTE | 2020-07-26 10:52 | NUR ---
Discharge paperwork reviewed with the patient. Patient verbalized an understanding to follow doctors orders. IV removed, tip intact. Gauze and bandaid applied. No further needs expressed from the patient.
--- NOTE | 2020-07-26 11:10 | NUR ---
Patient taken by wheelchair to vehicle. Personal belongings and discharge paperwork with the patient. No further needs expressed from the patient
--- NOTE | 2020-07-26 12:31 | NUR ---
Initial visit; Patient thanked Banquet Server for looking in on her and keeping her in Banquet Server's prayers.
== END 2020-07-26 11:10 | disposition home or self-care (01) ==
LOC: COL.ER 18:37 → SURG 07-26 00:58
PROVIDERS: Emergency Medicine; Nurse Practitioner Family; ADMIT Student in an Organized Health Care Education/Training Program
DX: R07.89 Other chest pain (principal); I16.0 Hypertensive urgency; I47.1 Supraventricular tachycardia; I26.99 Other pulmonary embolism without acute cor pulmonale; K25.9 Gastric ulcer, unspecified as acute or chronic, without hemorrhage or perforation; I10 Essential (primary) hypertension; E11.9 Type 2 diabetes mellitus without complications; J45.909 Unspecified asthma, uncomplicated; E03.9 Hypothyroidism, unspecified; F31.9 Bipolar disorder, unspecified; F41.9 Anxiety disorder, unspecified; F42.9 Obsessive-compulsive disorder, unspecified; G43.909 Migraine, unspecified, not intractable, without status migrainosus; Z95.0 Presence of cardiac pacemaker; Z79.4 Long term (current) use of insulin; Z79.890 Hormone replacement therapy; Z79.899 Other long term (current) drug therapy
CPT/HCPCS: G0378; J0360; J0595; J1815; J2270; J2765; J7030; Q9967